=== PATIENT | female | born 1975 | race Caucasian/White ===

== ENCOUNTER 2019-12-26 16:26 | Outpatient (REF) | payer BC, MEDICAID, SELFPAY | END 2019-12-26 16:27 | disposition home or self-care (01) | LOC: HO.LAB 16:26 | PROVIDERS: PCP Internal Medicine; Visit Provider Internal Medicine | DX: Z20.828 Contact with and (suspected) exposure to other viral communicable diseases (principal) | CPT/HCPCS: 36415; 87635 ==

== ENCOUNTER 2020-02-10 06:14 | Outpatient (REF) | payer BC, MEDICAID, SELFPAY | END 2020-02-10 06:15 | disposition home or self-care (01) | LOC: HO.LAB 06:14 | PROVIDERS: Visit Provider Internal Medicine | DX: Z20.828 Contact with and (suspected) exposure to other viral communicable diseases (principal) | CPT/HCPCS: C9803; U0003 ==

== ENCOUNTER 2020-02-18 08:21 | Outpatient (REF) | payer BC, MEDICAID, SELFPAY ==
--- NOTE | 2020-02-18 08:25 | MM_ITS ---
EXAMINATION: MM SCREENING DIGITAL BREAST TOMOSYNTHESIS, BILATERAL CLINICAL INFORMATION: Screening. Asymptomatic. Remote prior history breast reduction mammoplasty approximately 20 years ago. The lifetime risk of breast cancer based on the Tyrer-Cuzick Model is 7%. COMPARISON: Mammography: 08/18/2017, 02/13/2017, 07/27/2016 TECHNIQUE: Digital breast tomosynthesis is performed in both the craniocaudal and mediolateral oblique views along with computer-aided detection (CAD). Synthesized 2D images are generated from the tomosynthesis. FINDINGS: There are scattered areas of fibroglandular density (ACR BI-RADS breast composition Category b). Parenchymal pattern is similar to prior studies. There is minor scarring consistent with the prior history reduction mammoplasty. There is no significant mass or interval architectural abnormality or abnormal calcifications. No significant changes. MM/MM tomosynthesis screening BI IMPRESSION: No significant changes from prior studies. ASSESSMENT: BI-RADS 2: Benign RECOMMENDATION: Routine annual mammography screening. This patient's information was entered into a reminder system with a target due date for their next mammogram.
== END 2020-02-18 08:22 | disposition home or self-care (01) ==
LOC: HO.MAMMO 08:21
PROVIDERS: PCP Internal Medicine; Visit Provider Internal Medicine
DX: Z12.31 Encounter for screening mammogram for malignant neoplasm of breast (principal)
CPT/HCPCS: 77063; 77067

== ENCOUNTER 2020-03-30 12:55 | Outpatient (REF) | payer BC, MEDICAID, SELFPAY | END 2020-03-30 12:56 | disposition home or self-care (01) | LOC: HO.LAB 12:55 | PROVIDERS: PCP Internal Medicine; Visit Provider Internal Medicine | DX: Z20.822 Contact with and (suspected) exposure to COVID-19 (principal) | CPT/HCPCS: 36415; C9803; U0003 ==

== ENCOUNTER 2020-05-18 07:52 | Outpatient (REF) | payer BC, MEDICAID, SELFPAY | END 2020-05-18 07:53 | disposition home or self-care (01) | LOC: HO.LAB 07:52 | PROVIDERS: Visit Provider Internal Medicine | DX: Z20.822 Contact with and (suspected) exposure to COVID-19 (principal) | CPT/HCPCS: 36415; C9803; U0003; U0005 ==

== ENCOUNTER → 2020-07-23 13:48 | Outpatient (BNVA) | payer BC, MEDICAID, SELFPAY | PROVIDERS: PCP Internal Medicine; Visit Provider Anesthesiology ==

== ENCOUNTER 2020-07-27 12:00 | Outpatient (REF) | payer BC, MEDICAID, SELFPAY ==
--- NOTE | ~2020-07-27 | XR_ITS ---
EXAMINATION: CERVICAL AND LUMBAR SPINE X-RAYS CLINICAL INFORMATION: Spondylosis without myelopathy or radiculopathy COMPARISON: Previous lumbar spine April 2017 and previous cervical spine June 2015 TECHNIQUE: 5 views of the cervical spine and 5 views of the lumbar spine FINDINGS: Cervical spine: Bone alignment is normal. No fracture or dislocation is seen. There is degenerative spondylosis at C4-C5 and C5-C6. Evaluation of the right neuroforamen is limited due to patient positioning. There is a suggestion of right C4-C5 and C5-C6 mild neuroforaminal narrowing from bony osteophyte. Left-sided neural foramen appear patent. There is no prevertebral soft tissue swelling. Lumbar spine: There is a transitional vertebral body segment or or sacralization of L5. No fracture or dislocation is seen. Disc spaces are normal. There are degenerative changes at the transitional segment sacral articulation. XR/XR lumbar spine 4V min IMPRESSION: Cervical spine: Degenerative changes. Lumbar spine: Probable transitional vertebral body segment or sacralization of L5. Degenerative changes of the transitional segment sacral articulation, particularly in the left.
--- NOTE | ~2020-07-27 | XR_ITS ---
EXAMINATION: CERVICAL AND LUMBAR SPINE X-RAYS CLINICAL INFORMATION: Spondylosis without myelopathy or radiculopathy COMPARISON: Previous lumbar spine April 2017 and previous cervical spine June 2015 TECHNIQUE: 5 views of the cervical spine and 5 views of the lumbar spine FINDINGS: Cervical spine: Bone alignment is normal. No fracture or dislocation is seen. There is degenerative spondylosis at C4-C5 and C5-C6. Evaluation of the right neuroforamen is limited due to patient positioning. There is a suggestion of right C4-C5 and C5-C6 mild neuroforaminal narrowing from bony osteophyte. Left-sided neural foramen appear patent. There is no prevertebral soft tissue swelling. Lumbar spine: There is a transitional vertebral body segment or or sacralization of L5. No fracture or dislocation is seen. Disc spaces are normal. There are degenerative changes at the transitional segment sacral articulation. XR/XR cervical spine min 6V IMPRESSION: Cervical spine: Degenerative changes. Lumbar spine: Probable transitional vertebral body segment or sacralization of L5. Degenerative changes of the transitional segment sacral articulation, particularly in the left.
== END 2020-07-27 12:01 | disposition home or self-care (01) ==
LOC: HO.XRAY 12:00
PROVIDERS: PCP Internal Medicine; Visit Provider Anesthesiology
DX: M47.816 Spondylosis without myelopathy or radiculopathy, lumbar region (principal); M47.812 Spondylosis without myelopathy or radiculopathy, cervical region
CPT/HCPCS: 72052; 72110

== ENCOUNTER 2020-08-21 08:27 | Outpatient (REF) | payer BC, MEDICAID, SELFPAY ==
[2020-08-21 11:06] LABS: MANUAL DIFF FLAG NO
[2020-08-21 11:09] LABS: Basophils Absolute Auto 0.1 X10*3/uL (0.0-0.2); Eosinophils Absolute Auto 0.9 X10*3/uL (0.0-0.4); Eosinophils Percent Auto 7.1 % (0-4); Hematocrit 42.3 % (37-47); Hemoglobin 13.9 g/dl (12.0-16.0); Imm Gran Abs Auto 0.09 X10*3/uL (0.00-0.03); Imm Gran Pct Auto 0.7 % (0.0-0.4); Lymphocytes Absolute Auto 3.5 X10*3/uL (1.2-4.9); Lymphocytes Percent Auto 28.6 % (20-40); Mean Corpuscular HGB Conc 32.9 g/dl (31.0-35.0); Mean Corpuscular Hemoglobin 28.6 pg (27.0-33.0); Monocytes Absolute Auto 0.7 X10*3/uL (0.1-1.2); Monocytes Percent Auto 5.8 % (2-11); Neutrophils Percent Auto 56.8 % (45-73); Platelet Count 336 X10*3/uL (160-400); Red Blood Count 4.86 X10*6/uL (4.20-5.50); Red Cell Distribution Width 13.1 % (11.0-16.0); White Blood Count 12.3 X10*3/uL (4.8-10.8)
[2020-08-21 12:05] LABS: Alanine Aminotransferase 12 U/L (0-31); Alkaline Phosphatase 64 U/L (39-117); Anion Gap 14 (12-20); Aspartate Amino Transferase 10 U/L (5-31); Bilirubin Total 0.4 mg/dL (0.0-1.0); Blood Urea Nitrogen 13 mg/dL (9-16); Calcium 8.9 mg/dL (8.4-10.2); Carbon Dioxide 22 mmol/L (22-29); Chloride 108 mmol/L (96-108); Cholesterol 210 mg/dL; Estimated Glomerular Filt Rate > 60; Glucose Random 81 mg/dL (60-115); HDL Cholesterol 45 mg/dL; LDL Cholesterol Calculated 116 mg/dl; Potassium 4.6 mmol/L (3.3-5.1); Sodium 139 mmol/L (135-145); Total Protein 6.8 g/dL (6.5-8.0); Triglycerides 245 mg/dL
[2020-08-21 12:51] LABS: Thyroid Stimulating Hormone 2.35 uIU/mL (0.32-4.0); Vitamin D 25-OH Total 17.2 ng/mL (>30)
== END 2020-08-21 08:28 | disposition home or self-care (01) ==
LOC: HO.MANLDS 08:27
PROVIDERS: Visit Provider Internal Medicine
DX: Z00.00 Encounter for general adult medical examination without abnormal findings (principal)
CPT/HCPCS: 36415; 80053; 80061; 82306; 84443; 85025

== ENCOUNTER → 2020-09-03 15:31 | Outpatient (BNVA) | payer BC, MEDICAID, SELFPAY | PROVIDERS: PCP Internal Medicine; Visit Provider Anesthesiology ==

== ENCOUNTER 2020-09-25 07:26 | Outpatient (REF) | payer BC, MEDICAID, SELFPAY ==
--- NOTE | ~2020-09-25 | MR_ITS ---
EXAMINATION: MR CERVICAL SPINE WITHOUT CONTRAST CLINICAL INFORMATION: Neck pain radiating down arms. Radiculopathy. Self-reported left arm pain and tingling. COMPARISON: Cervical spine radiograph 07/27/2020. TECHNIQUE: MRI of the cervical spine was obtained using routine sequences without contrast. FINDINGS: VERTEBRAL BODIES AND PARASPINAL SOFT TISSUES: Vertebral body height, alignment and marrow signal are within normal limits aside from minimal endplate discogenic marrow signal changes. Mild anterior endplate osteophytosis is present at C4-C5 and C5-C6. CERVICOMEDULLARY JUNCTION AND VISUALIZED POSTERIOR FOSSA: Normal. SPINAL LEVELS: C2-C3: Normal. No central foraminal stenoses. Normal intervertebral disc. C3-C4: Normal. C4-C5: Mild anterior endplate osteophytosis. No central or foraminal stenoses. C5-C6: Mild anterior endplate osteophytosis. No central or foraminal stenoses. C6-C7: Normal. C7-T1: Normal. The cervical spinal cord is normal in contour, caliber and signal intensity. MR/MR cervical spine wo con IMPRESSION: Minimal anterior endplate osteophytosis of the cervical spine; otherwise, normal unenhanced MRI of the cervical spine. No central or foraminal stenoses. No nerve root impingement identified.
== END 2020-09-25 07:27 | disposition home or self-care (01) ==
LOC: HO.MRI 07:26
PROVIDERS: Visit Provider Physician Assistant
DX: M54.12 Radiculopathy, cervical region (principal)
CPT/HCPCS: 72141

== ENCOUNTER 2021-05-25 15:34 | Emergency (ER) | payer BC, MEDICAID, SELFPAY ==
--- NOTE | ~2021-05-25 | XR_ITS ---
EXAMINATION: XR CHEST CLINICAL INFORMATION: Chest pain COMPARISON: 10/02/2019 TECHNIQUE: 2 views of the chest were obtained. FINDINGS: No significant abnormality is noted involving the heart, lungs, mediastinum, bony thorax or soft tissues. XR/XR chest 2V IMPRESSION: Unremarkable examination.
--- NOTE | 2021-05-25 15:41 | ECG_ITS ---
Test Reason : chest pain Blood Pressure : / mmHG Vent. Rate : 062 BPM Atrial Rate : 062 BPM P-R Int : 132 ms QRS Dur : 088 ms QT Int : 404 ms P-R-T Axes : 096 071 033 degrees QTc Int : 410 ms Normal sinus rhythm Normal ECG When compared with ECG of 18-APR-2018 07:13, No significant change was found Referred By: Generic ED Physician Electronically Signed By:Zoran Davila
[2021-05-25 17:10] VITALS: BP 126/45; PULSE 63; RESP 18; TEMP 36.4; O2SAT 100; BMI 34.3
[2021-05-25 17:22] LABS: MANUAL DIFF FLAG NO
[2021-05-25 17:28] LABS: Basophils Absolute Auto 0.1 X10*3/uL (0.0-0.2); Basophils Percent Auto 1.1 % (0-2); Eosinophils Absolute Auto 0.2 X10*3/uL (0.0-0.4); Eosinophils Percent Auto 1.8 % (0-4); Hematocrit 41.3 % (37.0-47.0); Hemoglobin 14.1 g/dl (12.0-16.0); Imm Gran Abs Auto 0.06 X10*3/uL (0.00-0.03); Imm Gran Pct Auto 0.7 % (0.0-0.4); Mean Corpuscular HGB Conc 34.1 g/dl (31.0-35.0); Mean Corpuscular Hemoglobin 28.9 pg (27.0-33.0); Mean Corpuscular Volume 84.6 fL (80.0-98.0); Mean Platelet Volume 9.9 fL (9.4-12.3); Monocytes Absolute Auto 1.3 X10*3/uL (0.1-1.2); Monocytes Percent Auto 15.8 % (2-11); Neutrophils Absolute Auto 4.6 x10*3/uL (2.0-8.3); Neutrophils Percent Auto 56.6 % (45-73); Platelet Count 294 X10*3/uL (160-400); Red Blood Count 4.88 X10*6/uL (4.20-5.50); Red Cell Distribution Width 12.7 % (11.0-16.0); White Blood Count 8.1 X10*3/uL (4.8-10.8)
[2021-05-25 17:41] LABS: Alanine Aminotransferase 12 U/L (0-31); Albumin Level 4.3 g/dL (3.5-5.0); Alkaline Phosphatase 65 U/L (39-117); Anion Gap 15 (12-20); Aspartate Amino Transferase 16 U/L (5-31); Bilirubin Total 0.6 mg/dL (0.0-1.0); Blood Urea Nitrogen 11 mg/dL (9-16); Calcium 9.3 mg/dL (8.4-10.2); Carbon Dioxide 23 mmol/L (22-29); Chloride 104 mmol/L (96-108); Creatinine Clr Calc Pharmacy 74.9; Estimated Glomerular Filt Rate > 60; Glucose Random 79 mg/dL (60-115); Potassium 3.7 mmol/L (3.3-5.1); Sodium 138 mmol/L (135-145); Total Protein 7.2 g/dL (6.5-8.0)
[2021-05-25 17:47] LABS: Troponin-I High Sensitivity < 3.5 ng/L (<3.5-17.0)
[2021-05-25 17:50] LABS: COVID-19 Test Negative (Negative)
--- NOTE | 2021-05-25 21:14 | ED.CHESTPAIN ---
HPI - Chest Pain General Chief Complaint: Chest Pain Stated Complaint: chest pains/SOB Time Seen by Provider: 05/25/21 20:54 Source: patient Mode of arrival: ambulatory Limitations: no limitations History of Present Illness HPI narrative: 46-year-old female who presents emergency department for evaluation of chest pain, left shoulder pain and shortness of breath. The patient states that the chest pain started yesterday morning while she was resting. She states that it came on suddenly. She describes the pain as a sharp pain located on her left chest radiating to her left shoulder and down her left arm. She states the left shoulder and left arm pain is a burning sensation. She states the pain is been constant since its onset. The pain is 8/10 at its worst. The pain is associated with shortness of breath and dyspnea on exertion. She states she has also had a cough x2 days which is productive of phlegm with no blood. She has not noticed any pain or swelling in her legs. She denies being on control pills. She has not been on any long trips. She states she had similar pain 3 years prior in 2019 and had a cardiac workup with a negative stress test. The patient states that there is a family history of early heart disease. The patient's father had a heart attack at age 58 and of heart disease emphysema at age 59. The patient had a brother who at age 42 of a heart attack. Related Data Home Medications Medication Instructions Recorded Confirmed clonazepam 0.5 mg tablet 0.5 mg PO DAILY 07/23/20 diclofenac sodium 75 mg 75 mg PO BID 07/23/20 tablet,delayed release levothyroxine 25 mcg tablet 25 mcg PO DAILY 07/23/20 propranolol 20 mg tablet 20 mg PO TID 07/23/20 Previous Rx's Medication Instructions Recorded cyclobenzaprine 7.5 mg tablet 7.5 mg PO TID 30 Days #90 tab 07/23/20 Allergies Allergy/AdvReac Type Severity Reaction Status Date / Time Sulfa (Sulfonamide Allergy Intermediate RASH Verified 09/03/20 15:36 Antibiotics) [SULFA(SULFONAMIDE ANTIBIOTICS)] Review of Systems Review of Systems: Yes all other systems are reviewed and are negative PMFSH Past Medical History [facility] [place] Narrative: The past medical history: None. Past surgical history: x2, hip surgery, breast reduction. Social history: The patient states that she stop smoking cigarettes 2 days prior. She states she smokes 1/2 pack of cigarettes per day x2 years. She denies alcohol use. She denies drug use. 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 Social History Social History Advance Directives: No Advance Directives Information Provided: No Physical Exam Vital Signs: Vital Signs: Last Vital Signs Temp 98.5 F 05/25/21 21:20 Pulse 72 05/25/21 21:20 Resp 16 05/25/21 21:20 BP 116/53 L 05/25/21 21:20 Pulse Ox 98 05/25/21 21:20 BMI result Body Mass Index 34.3 Const: General: cooperative and no acute distress Orientation/consciousness: oriented to person and oriented to place Limitations: no limitations HENMT: Head: Yes normal to inspection, Yes normocephalic and Yes atraumatic Ears: external ears normal General nose exam: Normal external nose present Face and sinus: Yes normal facial exam Mouth: Normal oral and palatal mucosa present Throat: Yes posterior oropharynx normal Eyes: General: appearance normal, both eyes and all related structures Pupils: Equal, round and reactive pupils present Neck: Neck: Yes normal visual inspection, Yes no lymphadenopathy, Yes trachea midline and Yes supple Chest: Chest palpation & inspection: normal inspection of the chest and tenderness costochondral junction (Left) Resp: Effort & Inspection: normal respiratory effort and able to speak in complete sentences Auscultation: clear to auscultation bilaterally Cardio: Rate: regular rate Rhythm: regular rhythm Heart sounds: S1 normal heart sound present, S2 normal heart sound present and no murmurs GI: Inspection: Yes normal to inspection Palpation (GI): Soft to palpation, nontender and no guarding Auscultation: normal bowel sounds : General: Yes no CVA tenderness Back/Spine/Pelvis: Back: no CVA tenderness Skin: General skin exam: no rashes or lesions noted Neuro: General: oriented to person and oriented to place Cranial nerves: Yes CN's II-XII intact bilaterally and Yes Equal, round and reactive pupils present Cognition (Neuro): normal cognition Motor exam (neuro): 07/29 motor strength present throughout Extrem: General: Yes normal to inspection Psych: Appearance: grossly normal Speech and movement: Normal speech and movement present Affect: normal affect Attitude: cooperative Thought process: Normal thought process present Thought content: Normal thought content present Course Course Course Narrative: 46-year-old female who presents emergency department for evaluation of left-sided chest pain which radiates to her left shoulder and down her left arm, the pain started yesterday in the morning, came on suddenly and has been constant since then. Patient has had a productive cough x2 days. The chest pain is associated with shortness of breath and dyspnea on exertion. Patient's only cardiac risk factor is family history and a 2 year history of smoking. The patient's vital signs were normal with an O2 saturation of 100% on room air which is reassuring. Patient's examination did reveal significant left-sided chest wall tenderness along the costochondral joints. Twelve EKG was unremarkable unchanged compared to EKG from 04/18/2018. Chest x-ray was negative. Patient's CBC and CMP were normal. COVID-19 was negative. High sensitive troponin I was below detectable limits. Given these findings and the patient's chest wall tenderness, believe that the patient's symptoms are consistent with costochondritis I did discuss this with her. Patient was advised to take Tylenol ibuprofen. She was given printed and verbal instructions and discharged home. MDM - Chest Pain Lab Data Result diagrams: 05/25/21 17:17 05/25/21 17:17 Labs: Lab Results 05/25/21 05/25/21 05/25/21 Range/Units 17:15 17:17 17:17 WBC 8.1 (4.8-10.8) X10*3/uL RBC 4.88 (4.20-5.50) X10*6/uL Hgb 14.1 (12.0-16.0) g/dl Hct 41.3 (37.0-47.0) % MCV 84.6 (80.0-98.0) fL MCH 28.9 (27.0-33.0) pg MCHC 34.1 (31.0-35.0) g/dl RDW 12.7 (11.0-16.0) % Plt Count 294 (160-400) X10*3/uL MPV 9.9 (9.4-12.3) fL Immature Gran % (Auto) 0.7 H (0.0-0.4) % Neut % (Auto) 56.6 (45-73) % Lymph % (Auto) 24.0 (20-40) % Cal[place]oun % (Auto) 15.8 H (2-11) % Eos % (Auto) 1.8 (0-4) % Baso % (Auto) 1.1 (0-2) % Lymph # (Auto) 2.0 (1.2-4.9) X10*3/uL [place]oun # (Auto) 1.3 H (0.1-1.2) X10*3/uL Eos # (Auto) 0.2 (0.0-0.4) X10*3/uL Baso # (Auto) 0.1 (0.0-0.2) X10*3/uL Abs Immat Gran (auto) 0.06 H (0.00-0.03) X10*3/uL Absolute Neuts (auto) 4.6 (2.0-8.3) x10*3/uL Absolute Nucleated RBC 0.000 (0.0-0.012) X10*3/uL Nucleated RBC % (auto) 0.0 (0.0-0.2) /100WBC Sodium 138 (135-145) mmol/L Potassium 3.7 (3.3-5.1) mmol/L Chloride 104 (96-108) mmol/L Carbon Dioxide 23 (22-29) mmol/L Anion Gap 15 (12-20) BUN 11 (9-16) mg/dL Creatinine 0.85 (0.5-1.4) mg/dL Estim Creat Clear Calc 74.9 Estimated GFR > 60 Random Glucose 79 (60-115) mg/dL Calcium 9.3 (8.4-10.2) mg/dL Total Bilirubin 0.6 (0.0-1.0) mg/dL AST 16 D (5-31) U/L ALT 12 (0-31) U/L Alkaline Phosphatase 65 (39-117) U/L Troponin I High Sens (<3.5-17.0) ng/L Total Protein 7.2 (6.5-8.0) g/dL Albumin 4.3 (3.5-5.0) g/dL COVID-19 ([facility]) Negative (Negative) COVID-19 Clin Com See Note 05/25/21 Range/Units 17:17 WBC (4.8-10.8) X10*3/uL RBC (4.20-5.50) X10*6/uL Hgb (12.0-16.0) g/dl Hct (37.0-47.0) % MCV (80.0-98.0) fL MCH (27.0-33.0) pg MCHC (31.0-35.0) g/dl RDW (11.0-16.0) % Plt Count (160-400) X10*3/uL MPV (9.4-12.3) fL Immature Gran % (Auto) (0.0-0.4) % Neut % (Auto) (45-73) % Lymph % (Auto) (20-40) % Calhoun % (Auto) (2-11) % Eos % (Auto) (0-4) % Baso % (Auto) (0-2) % Lymph # (Auto) (1.2-4.9) X10*3/uL [place]oun # (Auto) (0.1-1.2) X10*3/uL Eos # (Auto) (0.0-0.4) X10*3/uL Baso # (Auto) (0.0-0.2) X10*3/uL Abs Immat Gran (auto) (0.00-0.03) X10*3/uL Absolute Neuts (auto) (2.0-8.3) x10*3/uL Absolute Nucleated RBC (0.0-0.012) X10*3/uL Nucleated RBC % (auto) (0.0-0.2) /100WBC Sodium (135-145) mmol/L Potassium (3.3-5.1) mmol/L Chloride (96-108) mmol/L Carbon Dioxide (22-29) mmol/L Anion Gap (12-20) BUN (9-16) mg/dL Creatinine (0.5-1.4) mg/dL Estim Creat Clear Calc Estimated GFR Random Glucose (60-115) mg/dL Calcium (8.4-10.2) mg/dL Total Bilirubin (0.0-1.0) mg/dL AST (5-31) U/L ALT (0-31) U/L Alkaline Phosphatase (39-117) U/L Troponin I High Sens < 3.5 (<3.5-17.0) ng/L Total Protein (6.5-8.0) g/dL Albumin (3.5-5.0) g/dL COVID-19 ([facility]AK) (Negative) COVID-19 Clin Com Discharge Plan Discharge Clinical Impression: Costalchondritis Patient Disposition: Home, Self-Care Instructions: Costochondritis (ED) Additional Instructions: Your complete blood count (CBC) and comprehensive metabolic panel (CMP) were normal which is reassuring. Your EKG was unremarkable and unchanged compared to your EKG done in March of 2018. Chest x-ray revealed no abnormalities to explain your chest pain. The high sensitivity troponin I, which is a marker of heart damage was below detectable limits and this is reassuring as well. At this time I do not think that your chest pain was caused by a heart attack or heart disease. On your examination, you did have tenderness with palpation of your left chest along the joints of your chest. This is consistent with inflammation of the chest joints (costochondritis) which is most likely the cause of your chest pain and left arm pain. Take Motrin (ibuprofen) 200 mg pills, 3 pills every 6 hours for the next 4 days to reduce inflammation chest then after that as needed for pain Take Tylenol (acetaminophen) 500 mg pills, 2 pills every 6 hours as needed for pain not relieved by the Motrin.. Apply ice for 15 minutes to the area that hurts on your chest, then apply a heating a pad on low for 15 minutes. Do this 4-6 times a day to help reduce the pain in your b chest Continue with normal activities as tolerated since staying in bed and not moving around will make your pain worse. Please return to the Emergency Department or see your doctor immediately if your symptoms get worse or if you develop any new symptoms that are concerning you. Follow up with your doctor in 2 day. Please read the other printed discharge instructions on costochondritis. Please see the work note. Prescriptions: No Action cyclobenzaprine 7.5 mg tablet 7.5 mg PO TID 30 Days Qty: 90 8RF Stand Alone Forms: Work/School Release Interventions: ED Discharge Assessment Last Done: 05/25/21 21:25 Discharge Date/Time: 05/25/21 21:35
[2021-05-25 21:20] VITALS: BP 116/53; PULSE 72; RESP 16; TEMP 36.9; O2SAT 98
== END 2021-05-25 21:35 | disposition home or self-care (01) ==
LOC: HO.ED 21:34
PROVIDERS: Emergency Provider Emergency Medicine Emergency Medical Services; PCP Internal Medicine
DX: R07.89 Other chest pain (principal); R06.02 Shortness of breath; Z20.822 Contact with and (suspected) exposure to COVID-19; Z79.899 Other long term (current) drug therapy
CPT/HCPCS: 71046; 80053; 84484; 85025; 87635; 93005; 99283

== ENCOUNTER 2022-06-08 20:41 | Emergency (ER) | payer BC, MEDICAID, SELFPAY ==
--- NOTE | ~2022-06-08 | US_ITS ---
EXAMINATION: US ABDOMEN LIMITED CLINICAL INFORMATION: Right upper quadrant pain. COMPARISON: No similar priors. TECHNIQUE: Real-time imaging of the right upper quadrant abdominal viscera. FINDINGS: PANCREAS: Normal. LIVER: Normal. The liver is normal in size. The liver contour is normal. Parenchymal echogenicity is normal. No focal hepatic lesion. There is no intrahepatic biliary duct dilatation seen. GALLBLADDER: There is a 0.3 cm hyperechoic focus in the gallbladder wall with no associated artifacts, such as twinkle, ring down or shadowing; unsure if this is a mobile or not mobile observation, as is not well seen on the decubitus images. No gallbladder wall thickening or pericholecystic free fluid. Negative Bergman's sign. COMMON BILE DUCT: Normal in caliber measuring 0.3 cm in diameter. RIGHT KIDNEY: Normal. No hydronephrosis. No renal calculi or focal parenchymal lesions. The kidney measures 10 cm in maximum dimension. FREE FLUID: None. US/US abdomen limited IMPRESSION: 1. There is a 0.3 cm hyperechoic focus in the gallbladder wall that could represent a gallbladder wall polyp versus an adherent stone. Given its small size, no follow-up is recommended. 2. No sonographic evidence of acute cholecystitis.
[2022-06-08 21:02] VITALS: BP 127/30; PULSE 64; RESP 18; TEMP 36.7; O2SAT 98; BMI 32.3
[2022-06-08 21:17] LABS: MANUAL DIFF FLAG NO
[2022-06-08 21:19] LABS: Basophils Percent Auto 0.4 % (0-2); Eosinophils Absolute Auto 0.5 X10*3/uL (0.0-0.4); Eosinophils Percent Auto 5.5 % (0-4); Hematocrit 42.9 % (37.0-47.0); Hemoglobin 14.5 g/dl (12.0-16.0); Imm Gran Abs Auto 0.07 X10*3/uL (0.00-0.03); Imm Gran Pct Auto 0.8 % (0.0-0.4); Lymphocytes Absolute Auto 2.9 X10*3/uL (1.2-4.9); Lymphocytes Percent Auto 31.5 % (20-40); Mean Corpuscular HGB Conc 33.8 g/dl (31.0-35.0); Mean Corpuscular Hemoglobin 28.7 pg (27.0-33.0); Mean Corpuscular Volume 84.8 fL (80.0-98.0); Mean Platelet Volume 9.8 fL (9.4-12.3); Monocytes Absolute Auto 0.9 X10*3/uL (0.1-1.2); Monocytes Percent Auto 9.3 % (2-11); Neutrophils Absolute Auto 4.8 x10*3/uL (2.0-8.3); Neutrophils Percent Auto 52.5 % (45-73); Platelet Count 283 X10*3/uL (160-400); Red Blood Count 5.06 X10*6/uL (4.20-5.50); Red Cell Distribution Width 12.5 % (11.0-16.0); White Blood Count 9.2 X10*3/uL (4.8-10.8)
[2022-06-08 21:34] LABS: Alanine Aminotransferase 14 U/L (0-31); Albumin Level 3.9 g/dL (3.5-5.0); Alkaline Phosphatase 62 U/L (39-117); Anion Gap 11 (12-20); Aspartate Amino Transferase 16 U/L (5-31); Bilirubin Direct < 0.2 mg/dL (0.0-0.5); Bilirubin Total 0.4 mg/dL (0.0-1.0); Blood Urea Nitrogen 10 mg/dL (9-16); Calcium 8.4 mg/dL (8.4-10.2); Carbon Dioxide 25 mmol/L (22-29); Chloride 107 mmol/L (96-108); Estimated Glomerular Filt Rate > 60; Glucose Random 88 mg/dL (60-115); Lipase 33 U/L (8-78); Potassium 3.7 mmol/L (3.3-5.1); Sodium 139 mmol/L (135-145); Total Protein 6.6 g/dL (6.5-8.0)
[2022-06-08 21:56] LABS: B Type Natriuretic Peptide < 10 pg/mL (<100)
--- NOTE | 2022-06-08 22:14 | ED_ITS ---
HPI - Abdominal Pain General Chief Complaint: Abdominal Pain Stated Complaint: abd pain Time Seen by Provider: 06/08/22 21:55 Source: patient Mode of arrival: ambulatory Limitations: no limitations History of Present Illness HPI narrative: Is complaining of upper abdominal pain since yesterday had temperature 100.7 degrees patient with nausea no vomiting or diarrhea never had similar pain in the past no urinary complaints no diarrhea Related Data Home Medications Medication Instructions Recorded Confirmed clonazepam 0.5 mg tablet 0.5 mg PO DAILY 07/23/20 diclofenac sodium 75 mg 75 mg PO BID 07/23/20 tablet,delayed release levothyroxine 25 mcg tablet 25 mcg PO DAILY 07/23/20 propranolol 20 mg tablet 20 mg PO TID 07/23/20 Previous Rx's Medication Instructions Recorded cyclobenzaprine 7.5 mg tablet 7.5 mg PO TID 30 days #90 tabs 07/23/20 dicyclomine 20 mg tablet 20 mg PO TID PRN abdominal pain 06/09/22 #15 tabs ondansetron 4 mg disintegrating 4 mg PO Q6-8H PRN nausea and 06/09/22 tablet vomiting #7 tabs Allergies Allergy/AdvReac Type Severity Reaction Status Date / Time Sulfa (Sulfonamide Allergy Intermediate RASH Verified 06/08/22 21:02 Antibiotics) [SULFA(SULFONAMIDE ANTIBIOTICS)] Review of Systems Review of Systems Yes all other systems are reviewed and are negative [facility] Past Medical History 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 Oriented X3. No acute distress. Eyes: No pallor or icterus ENT: Pharynx normal. Oral Mucosa moist Neck: Normal inspection. Neck supple. CVS: Normal heart rate and rhythm. Pulses normal. Respiratory: No respiratory distress. Equal air entry bilateral, Abdomen: Soft mild epigastric tenderness no rebound tenderness Bergman sign negative. Bowel sounds are present, no mass palpable, no CVA tenderness Skin: Skin warm and dry. Normal skin color. Normal skin turgor. Extremities: No lower extremity edema. No calf tenderness Neuro: Oriented X 3. Medical Decision Making Medical Decision Making [facility] Narrative: . Nonspecific abdominal pain likely viral ultrasound negative for gallstones Bergman sign is negative UA is negative discharge patient home symptomatic t reatment with Bentyl and Zofran Lab Data [facility] Lab Attestation statement: I reviewed the patient's lab results. 06/08/22 21:13 06/08/22 21:13 Labs: Lab Results 06/08/22 06/08/22 06/08/22 Range/Units 21:13 21:13 21:13 WBC 9.2 (4.8-10.8) X10*3/uL RBC 5.06 (4.20-5.50) X10*6/uL Hgb 14.5 (12.0-16.0) g/dl Hct 42.9 (37.0-47.0) % MCV 84.8 (80.0-98.0) fL MCH 28.7 (27.0-33.0) pg MCHC 33.8 (31.0-35.0) g/dl RDW 12.5 (11.0-16.0) % Plt Count 283 (160-400) X10*3/uL MPV 9.8 (9.4-12.3) fL Immature Gran % (Auto) 0.8 H (0.0-0.4) % Neut % (Auto) 52.5 (45-73) % Lymph % (Auto) 31.5 (20-40) % Gregory % (Auto) 9.3 (2-11) % Eos % (Auto) 5.5 H (0-4) % Baso % (Auto) 0.4 (0-2) % Lymph # (Auto) 2.9 (1.2-4.9) X10*3/uL Gregory # (Auto) 0.9 (0.1-1.2) X10*3/uL Eos # (Auto) 0.5 H (0.0-0.4) X10*3/uL Baso # (Auto) 0.0 (0.0-0.2) X10*3/uL Abs Immat Gran (auto) 0.07 H (0.00-0.03) X10*3/uL Absolute Neuts (auto) 4.8 (2.0-8.3) x10*3/uL Absolute Nucleated RBC 0.000 (0.0-0.012) X10*3/uL Nucleated RBC % (auto) 0.0 (0.0-0.2) /100WBC Sodium 139 (135-145) mmol/L Potassium 3.7 (3.3-5.1) mmol/L Chloride 107 (96-108) mmol/L Carbon Dioxide 25 (22-29) mmol/L Anion Gap 11 L (12-20) BUN 10 (9-16) mg/dL Creatinine 0.87 (0.5-1.4) mg/dL Estim Creat Clear Calc 70.0 Estimated GFR > 60 Random Glucose 88 (60-115) mg/dL Calcium 8.4 D (8.4-10.2) mg/dL Total Bilirubin 0.4 (0.0-1.0) mg/dL Direct Bilirubin < 0.2 (0.0-0.5) mg/dL AST 16 (5-31) U/L ALT 14 (0-31) U/L Alkaline Phosphatase 62 (39-117) U/L B-Natriuretic Peptide < 10 (<100) pg/mL Total Protein 6.6 (6.5-8.0) g/dL Albumin 3.9 (3.5-5.0) g/dL Lipase 33 (8-78) U/L Urine Color Urine Appearance Urine pH (5.0-9.0) Ur Specific [place] (1.005-1.025) Urine Protein (Neg-Trace) mg/dL Urine Glucose (UA) (Negative) mg/dL Urine Ketones (Negative) mg/dL Urine Blood (Negative) Urine Nitrite (Negative) Ur Leukocyte Esterase (Negative) 06/08/22 Range/Units 23:42 WBC (4.8-10.8) X10*3/uL RBC (4.20-5.50) X10*6/uL Hgb (12.0-16.0) g/dl Hct (37.0-47.0) % MCV (80.0-98.0) fL MCH (27.0-33.0) pg MCHC (31.0-35.0) g/dl RDW (11.0-16.0) % Plt Count (160-400) X10*3/uL MPV (9.4-12.3) fL Immature Gran % (Auto) (0.0-0.4) % Neut % (Auto) (45-73) % Lymph % (Auto) (20-40) % Gregory % (Auto) (2-11) % Eos % (Auto) (0-4) % Baso % (Auto) (0-2) % Lymph # (Auto) (1.2-4.9) X10*3/uL Gregory # (Auto) (0.1-1.2) X10*3/uL Eos # (Auto) (0.0-0.4) X10*3/uL Baso # (Auto) (0.0-0.2) X10*3/uL Abs Immat Gran (auto) (0.00-0.03) X10*3/uL Absolute Neuts (auto) (2.0-8.3) x10*3/uL Absolute Nucleated RBC (0.0-0.012) X10*3/uL Nucleated RBC % (auto) (0.0-0.2) /100WBC Sodium (135-145) mmol/L Potassium (3.3-5.1) mmol/L Chloride (96-108) mmol/L Carbon Dioxide (22-29) mmol/L Anion Gap (12-20) BUN (9-16) mg/dL Creatinine (0.5-1.4) mg/dL Estim Creat Clear Calc Estimated GFR Random Glucose (60-115) mg/dL Calcium (8.4-10.2) mg/dL Total Bilirubin (0.0-1.0) mg/dL Direct Bilirubin (0.0-0.5) mg/dL AST (5-31) U/L ALT (0-31) U/L Alkaline Phosphatase (39-117) U/L B-Natriuretic Peptide (<100) pg/mL Total Protein (6.5-8.0) g/dL Albumin (3.5-5.0) g/dL Lipase (8-78) U/L Urine Color Yellow Urine Appearance Clear Urine pH 5.5 (5.0-9.0) Ur Specific [place] 1.010 (1.005-1.025) Urine Protein Negative (Neg-Trace) mg/dL Urine Glucose (UA) Negative (Negative) mg/dL Urine Ketones Trace (Negative) mg/dL Urine Blood Negative (Negative) Urine Nitrite Negative (Negative) Ur Leukocyte Esterase Negative (Negative) Medications Administered Discontinued Medications Generic Name Dose Route Start Last Admin Trade Name Freq PRN Reason Stop Dose Admin Ondansetron HCl 4 mg 06/08/22 23:58 06/09/22 00:03 Ondansetron Odt 4 Mg Tab.Rapdis TRANSLINGU 06/08/22 23:59 4 mg ONCE ONE Administration Tramadol HCl 50 mg 06/08/22 23:58 06/09/22 00:03 Tramadol Hcl 50 Mg Tablet PO 06/08/22 23:59 50 mg ONCE ONE Administration Discharge Plan Discharge Clinical Impression: Abdominal pain Patient Disposition: Home, Self-Care Instructions: Abdominal Pain (ED) Additional Instructions: Drink plenty of fluids Medicine for pain and nausea as prescribed Likely have a viral syndrome Report to ER if pain gets worse Prescriptions: New dicyclomine 20 mg tablet 20 mg PO TID PRN (Reason: abdominal pain) Qty: 15 0RF ondansetron 4 mg tablet,disintegrating 4 mg PO Q6-8H PRN (Reason: nausea and vomiting) Qty: 7 0RF No Action cyclobenzaprine 7.5 mg tablet 7.5 mg PO TID 30 Days Qty: 90 8RF Interventions: ED Discharge Assessment Last Done: 06/09/22 00:13 Discharge Date/Time: 06/09/22 00:08
[2022-06-08 23:50] LABS: Appearance Urine Clear; Color Urine Yellow; Glucose Urine UA Negative (Negative); Leukocyte Esterase Urine Negative (Negative); Nitrite Urine Negative (Negative); PH 5.5 (5.0-9.0); Urine Blood Negative (Negative); Urine Ketones Trace mg/dL (Negative); Urine Protein Negative (Neg-Trace)
[2022-06-09] MEDS: traMADoL HCL 50 MG TABLET PO (00:03)
[2022-06-09] MEDS: Ondansetron ODT 4 MG TAB.RAPDIS TRANSLINGU (00:03)
--- NOTE | 2022-06-09 00:08 | PC.NURSE ---
pt aox4, no apparent distress, c/o abd pain minor daughter at bedside resting quietly while using phone will ctm
--- NOTE | 2022-06-09 00:14 | PC.NURSE ---
Discharge instructions given/explained to pt No apparent distress Ambulates safely/independently aox4
== END 2022-06-09 00:08 | disposition home or self-care (01) ==
PROVIDERS: Emergency Provider Internal Medicine; PCP Internal Medicine
DX: R10.13 Epigastric pain (principal); R11.2 Nausea with vomiting, unspecified; R06.02 Shortness of breath; Z79.899 Other long term (current) drug therapy
CPT/HCPCS: 36415; 76705; 80048; 80076; 81003; 83690; 83880; 85025; 99284

== ENCOUNTER 2022-06-13 14:03 | Emergency (ER) | payer BC, MEDICAID, SELFPAY ==
--- NOTE | ~2022-06-13 | CT_ITS ---
EXAMINATION: CT ABDOMEN AND PELVIS WITH CONTRAST CLINICAL INFORMATION: Right upper quadrant pain. Epigastric pain. COMPARISON: Ultrasound abdomen 06/08/2022 TECHNIQUE: Multidetector volumetric images were obtained from the superior aspect of the liver through the pubic symphysis following administration 85 mL of Omnipaque 350 intravenous contrast. Sagittal and coronal reformatted images were obtained on the technologist's workstation. Oral contrast: No This CT examination was performed using dose optimization techniques as appropriate, variously including the following: *Automated exposure control *Adjustment of mA and/or kV according to patient size (this includes techniques or standardized protocols for targeted exams where dose is matched to indication/reason for exam; i.e. extremities or head) *Use of iterative reconstruction technique DLP: 660 mGy-cm FINDINGS: LUNG BASES: The visualized lung bases are unremarkable. LIVER, GALLBLADDER, AND BILIARY TREE: The liver is normal in size, shape, and attenuation. 2 small hypodense lesions, too small to characterize, statistically likely to be cysts. No biliary ductal dilatation is present. The gallbladder is unremarkable with no evidence of radiopaque gallstones, gallbladder wall thickening, or obvious pericholecystic inflammatory changes. Ultrasound demonstrated a polyp versus adherent stone, which is not evident on CT. PANCREAS: Unremarkable. SPLEEN: Unremarkable. ADRENAL GLANDS: Unremarkable. KIDNEYS AND URETERS: The kidneys are normal in size, shape, and attenuation. No hydronephrosis, hydroureter, or calculi seen. No perinephric stranding. BLADDER: Unremarkable. GASTROINTESTINAL TRACT: Stomach has luminal contents limiting evaluation. No dilated small bowel loops. Small-moderate volume stool in the large colon. No acute inflammatory changes evident with the large bowel. Normal appendix. No free fluid. No free air. ABDOMINAL WALL: No significant hernia is appreciated. LYMPH NODES: No lymphadenopathy seen.. VASCULAR: Normal caliber aorta. Portal vein is enhancing. PELVIC VISCERA: Anteverted uterus. There is fullness of the lower uterine segment/cervix, with the relative hyperattenuation as compared to the more distal aspect of the uterus. This of indeterminate etiology. Evaluation is limited on CT. No suspicious adnexal findings. OSSEOUS STRUCTURES: No acute or suspicious osseous abnormality.. CT/CT abdomen pelvis w IV con IMPRESSION: 1. 2 small hypodense liver lesions, too small to compress, statistically probably cysts. 2. Nonobstructive bowel gas pattern. No acute bowel findings seen. 3. Findings in the lower uterine segment/cervix, with fullness and relative hypoattenuation, suboptimally evaluated by CT. Clinically correlate. Consider further evaluation with follow-up ultrasound as clinically warranted. 4. The stone/polyp in the gallbladder seen on the recent ultrasound is not evident on CT. No acute pericholecystic inflammatory changes evident by CT. Fleischner guidelines were followed.
[2022-06-13 14:09] VITALS: BP 112/45; PULSE 82; RESP 18; TEMP 36.6; O2SAT 98; BMI 33.3
--- NOTE | 2022-06-13 14:10 | ED.ABDPAIN ---
HPI - Abdominal Pain General Chief Complaint: Abdominal Pain <YOLANDA Royal - Last Filed: 06/13/22 14:12> Stated Complaint: abd pains <YOLANDA Royal - Last Filed: 06/13/22 14:12> Time Seen by Provider: 06/13/22 18:28 <YOLANDA Royal - Last Filed: 06/13/22 14:12> Source: patient <Gale Sepulveda NP - Last Filed: 06/13/22 20:55> Mode of arrival: ambulatory <Gale Sepulveda NP - Last Filed: 06/13/22 20:55> Limitations: no limitations <Gale Sepulveda NP - Last Filed: 06/13/22 20:55> History of Present Illness HPI narrative: 47-year-old female presents with over 1 week of right upper quadrant bandlike abdominal pain accompanied by dizziness, and nausea. Patient states that she here 1 week ago with a negative workup. Abdominal pain is worsened, and alleviate nausea and dizziness <Gale Sepulveda NP - Last Filed: 06/13/22 20:55> MD elicited complaint: abdominal pain <Gale Sepulveda NP - Last Filed: 06/13/22 20:55> Onset (ago): week(s) <Gale Sepulveda NP - Last Filed: 06/13/22 20:55> Pain Consistency: constant <Gale Sepulveda NP - Last Filed: 06/13/22 20:55> Location: epigastric and RUQ <Gale Sepulveda NP - Last Filed: 06/13/22 20:55> Severity: severe <Gale Sepulveda NP - Last Filed: 06/13/22 20:55> Pain scale (0-10): 8 <Gale Sepulveda NP - Last Filed: 06/13/22 20:55> Quality: aching <Gale Sepulveda NP - Last Filed: 06/13/22 20:55> Radiation: LUQ and epigastric <Gale Sepulveda NP - Last Filed: 06/13/22 20:55> Exacerbating factors: eating, vomiting and movement <Gale Sepulveda NP - Last Filed: 06/13/22 20:55> Relieving factors: nothing <Gale Sepulveda NP - Last Filed: 06/13/22 20:55> Associated symptoms: nausea, vomiting and other (Dizziness, fatigue) <Gale Sepulveda NP - Last Filed: 06/13/22 20:55> Treatments prior to arrival: prescription analgesics and other (Antiemetics) <GEN Adamson Last Filed: 06/13/22 20:55> Related Data Hx Last Menstrual Period: Tubal ligation <Gale Sepulveda NP - Last Filed: 06/13/22 20:55> Home Medications: Home Medications Medication Instructions Recorded Confirmed clonazepam 0.5 mg tablet 0.5 mg PO DAILY 07/23/20 diclofenac sodium 75 mg 75 mg PO BID 07/23/20 tablet,delayed release levothyroxine 25 mcg tablet 25 mcg PO DAILY 07/23/20 propranolol 20 mg tablet 20 mg PO TID 07/23/20 Previous Rx's Medication Instructions Recorded cyclobenzaprine 7.5 mg tablet 7.5 mg PO TID 30 days #90 tabs 07/23/20 dicyclomine 20 mg tablet 20 mg PO TID PRN abdominal pain 06/09/22 #15 tabs ondansetron 4 mg disintegrating 4 mg PO Q6-8H PRN nausea and 06/09/22 tablet vomiting #7 tabs <YOLANDA Royal - Last Filed: 06/13/22 14:12> Allergies/Adverse Reactions: Allergies Allergy/AdvReac Type Severity Reaction Status Date / Time Sulfa (Sulfonamide Allergy Intermediate RASH Verified 06/08/22 21:02 Antibiotics) [SULFA(SULFONAMIDE ANTIBIOTICS)] <YOLANDA Royal - Last Filed: 06/13/22 14:12> Review of Systems Review of Systems Constitutional: No Fever, No Chills Cardiovascular: No Chest Pain, No SOB Respiratory: No Cough, No Dyspnea Gastrointestinal: Of Nausea, phos Vomiting, No Diarrhea, pot abdominal Pain Genitourinary: No Dysuria, No Hematuria Musculoskeletal: No joint pain, No Myalgias, No Joint Swelling Skin: No Skin lacerations, No rash Neuro: No Weakness, No Numbness, No Paresthesias, positive Dizziness, No Headache <GEN Adamson Last Filed: 06/13/22 20:55> Yes all other systems are reviewed and are negative <Gale Sepulveda NP - Last Filed: 06/13/22 20:55> [facility] Past Medical History Attestation statement: The following information was validated with the patient. 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 <YOLANDA Royal - Last Filed: 06/13/22 14:12> Hx Last Menstrual Period: Tubal ligation <Gale Sepulveda NP - Last Filed: 06/13/22 20:55> Social History Social History: Social History Alcohol intake: never Advance Directives: No Advance Directives Information Provided: Yes <YOLANDA Royal - Last Filed: 06/13/22 14:12> Physical Exam ED Vital Signs: Vital Signs - 24 hr 06/13/22 14:09 06/13/22 18:40 06/13/22 20:12 Temperature 98 F 97.8 F Pulse Rate 82 67 70 Respiratory Rate 18 14 15 Blood Pressure 112/45 L 110/53 L 115/69 Pulse Oximetry 98 98 99 Oxygen Delivery Method Room Air Room Air BMI result Body Mass Index 33.3 <YOLANDA Royal - Last Filed: 06/13/22 14:12> Vital Signs - 24 hr 06/13/22 14:09 06/13/22 18:40 06/13/22 20:12 Temperature 98 F 97.8 F Pulse Rate 82 67 70 Respiratory Rate 18 14 15 Blood Pressure 112/45 L 110/53 L 115/69 Pulse Oximetry 98 98 99 Oxygen Delivery Method Room Air Room Air BMI result Body Mass Index 33.3 <Gale Sepulveda NP - Last Filed: 06/13/22 20:55> Appearance: Alert. Oriented X3. Model distress. Eyes: Pupils equal, round and reactive to light. Sclera nonicteric. ENT: Pharynx normal. Dry mucous membranes. Neck: Normal inspection. Neck supple. CVS: Normal heart rate and rhythm. Pulses normal. Respiratory: No respiratory distress. Breath sounds normal. Abdomen: Soft and tender positive Bergman's, positive epigastric pain. Negative rigidity negative rebound. Skin: Skin warm and dry. Normal skin color. Extremities: Gait well-balanced well coordinated. Neuro: No motor deficit. No sensory deficit. Cranial nerves 2-12 intact. <Gale Sepulveda NP - Last Filed: 06/13/22 20:55> Course Course Course Narrative: This is an RME: Additional HPI, ROS, PE not included below will be deferred to primary provider. 47-year-old female without significant medical history presents complaints of epigastric and right upper quadrant pain x6 days was seen here 06/08/2022 for a similar complaint had an ultrasound which was negative was told she had a viral bug. Patient reports she has been nauseous is having difficult time tolerating p.o.. Denies fevers, chills, chest pain, shortness of breath, headache, vision changes, changes in urination or bowel habits. Physical exam mild tenderness to epigastric region and right upper quadrant. Plan labs, CT abd and pelvis. At this time I will not repeat another ultrasound as she had a negative ultrasound done on 06/09/2019 <YOLANDA Royal - Last Filed: 06/13/22 14:12> This is an RME: Additional HPI, ROS, PE not included below will be deferred to primary provider. 47-year-old female without significant medical history presents complaints of epigastric and right upper quadrant pain x6 days was seen here 06/08/2022 for a similar complaint had an ultrasound which was negative was told she had a viral bug. Patient reports she has been nauseous is having difficult time tolerating p.o.. Denies fevers, chills, chest pain, shortness of breath, headache, vision changes, changes in urination or bowel habits. Physical exam mild tenderness to epigastric region and right upper quadrant. Plan labs, CT abd and pelvis. At this time I will not repeat another ultrasound as she had a negative ultrasound done on 06/09/2019 20:30 CT scan negative for acute findings. Incidental findings noted which were discussed in detail with the patient, requiring follow-up with OBGYN. Patient does have a family history of cervical cancer and she has a history of HPV. She does understand the importance of follow-up for this abnormal uterine finding. She has an appointment with fast food assistant restaurant manager later next month, she will call to update them that she had an abnormal CT scan in requires an outpatient pelvic ultrasound. I also included this in the discharge instructions. Second incidental findings are 2 hypodense lesions in the liver that are too small to characterize. I did inform her that she must follow up on these, and that these are relatively benign at this time. Supportive measures with Tylenol and Motrin discussed, patient will continue to use her Zofran as prescribed. Stated that the Bentyl does not work. At this time I do not feel further medications are required for this. This is most likely a viral gastroenteritis as I have ruled out acute abdominal findings. As far as this patient's dizziness, if her dizziness continues and is accompanied with nausea and vomiting, patient could consider further studies with CT scan of the head. At this time patient is neurovascularly intact, NIH stroke scale 0, José Luis coma Scale 15. No indication for CT scan of the head at this time. Patient verbalized understanding of discharge instructions. Verbalized understandings of signs and symptoms indicating need for emergent intervention. <GEN Adamson Last Filed: 06/13/22 20:55> Medical Decision Making Differential Diagnosis Differential Diagnoses: The differential diagnosis associated with the presentation includes <GEN Adamson Last Filed: 06/13/22 20:55> Cholecystitis, viral gastroenteritis, acute appendicitis, gastritis <GEN Adamson Last Filed: 06/13/22 20:55> Admission/Observation Consideration of admission/observation: Escalation of care including admission/observation considered <GEN Adamson Last Filed: 06/13/22 20:55> If findings are consistent with acute abdomen, will consider admission or surgical consult <GEN Adamson Last Filed: 06/13/22 20:55> Lab Data MDM Lab Attestation statement: I reviewed the patient's lab results. <GEN Adamson Last Filed: 06/13/22 20:55> Result Diagrams: 06/13/22 14:30 06/13/22 14:30 <YOLANDA Royal - Last Filed: 06/13/22 14:12> Labs: Lab Results 06/13/22 06/13/22 06/13/22 Range/Units 14:30 14:30 14:30 WBC 10.9 H (4.8-10.8) X10*3/uL RBC 4.66 (4.20-5.50) X10*6/uL Hgb 13.3 (12.0-16.0) g/dl Hct 39.5 (37.0-47.0) % MCV 84.8 (80.0-98.0) fL MCH 28.5 (27.0-33.0) pg MCHC 33.7 (31.0-35.0) g/dl RDW 12.2 (11.0-16.0) % Plt Count 314 (160-400) X10*3/uL MPV 9.9 (9.4-12.3) fL Immature Gran % (Auto) 0.6 H (0.0-0.4) % Neut % (Auto) 60.6 (45-73) % Lymph % (Auto) 28.8 (20-40) % [place] % (Auto) 5.6 (2-11) % Eos % (Auto) 3.7 (0-4) % Baso % (Auto) 0.7 (0-2) % Lymph # (Auto) 3.2 (1.2-4.9) X10*3/uL [place] # (Auto) 0.6 (0.1-1.2) X10*3/uL Eos # (Auto) 0.4 (0.0-0.4) X10*3/uL Baso # (Auto) 0.1 (0.0-0.2) X10*3/uL Abs Immat Gran (auto) 0.07 H (0.00-0.03) X10*3/uL Absolute Neuts (auto) 6.6 (2.0-8.3) x10*3/uL Absolute Nucleated RBC 0.000 (0.0-0.012) X10*3/uL Nucleated RBC % (auto) 0.0 (0.0-0.2) /100WBC Sodium 140 (135-145) mmol/L Potassium 4.1 (3.3-5.1) mmol/L Chloride 109 H (96-108) mmol/L Carbon Dioxide 26 (22-29) mmol/L Anion Gap 9 L (12-20) BUN 15 (9-16) mg/dL Creatinine 0.75 (0.5-1.4) mg/dL Estim Creat Clear Calc 82.6 Estimated GFR > 60 Random Glucose 89 (60-115) mg/dL Calcium 8.8 (8.4-10.2) mg/dL Magnesium 2.2 (1.6-2.6) mg/dL Total Bilirubin 0.4 (0.0-1.0) mg/dL AST 14 (5-31) U/L ALT 22 (0-31) U/L Alkaline Phosphatase 53 (39-117) U/L Total Protein 6.2 L (6.5-8.0) g/dL Albumin 3.8 (3.5-5.0) g/dL Lipase 35 (8-78) U/L COVID-19 ([facility]AK) (Negative) COVID-19 Clin Com Influenza Type A (ARNULFO) Negative (Negative) Influenza Type B (ARNULFO) Negative (Negative) Influenza A & B Note See Note 06/13/22 Range/Units 14:30 WBC (4.8-10.8) X10*3/uL RBC (4.20-5.50) X10*6/uL Hgb (12.0-16.0) g/dl Hct (37.0-47.0) % MCV (80.0-98.0) fL MCH (27.0-33.0) pg MCHC (31.0-35.0) g/dl RDW (11.0-16.0) % Plt Count (160-400) X10*3/uL MPV (9.4-12.3) fL Immature Gran % (Auto) (0.0-0.4) % Neut % (Auto) (45-73) % Lymph % (Auto) (20-40) % [place] % (Auto) (2-11) % Eos % (Auto) (0-4) % Baso % (Auto) (0-2) % Lymph # (Auto) (1.2-4.9) X10*3/uL [place] # (Auto) (0.1-1.2) X10*3/uL Eos # (Auto) (0.0-0.4) X10*3/uL Baso # (Auto) (0.0-0.2) X10*3/uL Abs Immat Gran (auto) (0.00-0.03) X10*3/uL Absolute Neuts (auto) (2.0-8.3) x10*3/uL Absolute Nucleated RBC (0.0-0.012) X10*3/uL Nucleated RBC % (auto) (0.0-0.2) /100WBC Sodium (135-145) mmol/L Potassium (3.3-5.1) mmol/L Chloride (96-108) mmol/L Carbon Dioxide (22-29) mmol/L Anion Gap (12-20) BUN (9-16) mg/dL Creatinine (0.5-1.4) mg/dL Estim Creat Clear Calc Estimated GFR Random Glucose (60-115) mg/dL Calcium (8.4-10.2) mg/dL Magnesium (1.6-2.6) mg/dL Total Bilirubin (0.0-1.0) mg/dL AST (5-31) U/L ALT (0-31) U/L Alkaline Phosphatase (39-117) U/L Total Protein (6.5-8.0) g/dL Albumin (3.5-5.0) g/dL Lipase (8-78) U/L COVID-19 ([facility]AK) Negative (Negative) COVID-19 Clin Com See Note Influenza Type A (ARNULFO) (Negative) Influenza Type B (ARNULFO) (Negative) Influenza A & B Note <YOLANDA Royal - Last Filed: 06/13/22 14:12> Lab Results 06/13/22 06/13/22 06/13/22 Range/Units 14:30 14:30 14:30 WBC 10.9 H (4.8-10.8) X10*3/uL RBC 4.66 (4.20-5.50) X10*6/uL Hgb 13.3 (12.0-16.0) g/dl Hct 39.5 (37.0-47.0) % MCV 84.8 (80.0-98.0) fL MCH 28.5 (27.0-33.0) pg MCHC 33.7 (31.0-35.0) g/dl RDW 12.2 (11.0-16.0) % Plt Count 314 (160-400) X10*3/uL MPV 9.9 (9.4-12.3) fL Immature Gran % (Auto) 0.6 H (0.0-0.4) % Neut % (Auto) 60.6 (45-73) % Lymph % (Auto) 28.8 (20-40) % [place] % (Auto) 5.6 (2-11) % Eos % (Auto) 3.7 (0-4) % Baso % (Auto) 0.7 (0-2) % Lymph # (Auto) 3.2 (1.2-4.9) X10*3/uL [place] # (Auto) 0.6 (0.1-1.2) X10*3/uL Eos # (Auto) 0.4 (0.0-0.4) X10*3/uL Baso # (Auto) 0.1 (0.0-0.2) X10*3/uL Abs Immat Gran (auto) 0.07 H (0.00-0.03) X10*3/uL Absolute Neuts (auto) 6.6 (2.0-8.3) x10*3/uL Absolute Nucleated RBC 0.000 (0.0-0.012) X10*3/uL Nucleated RBC % (auto) 0.0 (0.0-0.2) /100WBC Sodium 140 (135-145) mmol/L Potassium 4.1 (3.3-5.1) mmol/L Chloride 109 H (96-108) mmol/L Carbon Dioxide 26 (22-29) mmol/L Anion Gap 9 L (12-20) BUN 15 (9-16) mg/dL Creatinine 0.75 (0.5-1.4) mg/dL Estim Creat Clear Calc 82.6 Estimated GFR > 60 Random Glucose 89 (60-115) mg/dL Calcium 8.8 (8.4-10.2) mg/dL Magnesium 2.2 (1.6-2.6) mg/dL Total Bilirubin 0.4 (0.0-1.0) mg/dL AST 14 (5-31) U/L ALT 22 (0-31) U/L Alkaline Phosphatase 53 (39-117) U/L Total Protein 6.2 L (6.5-8.0) g/dL Albumin 3.8 (3.5-5.0) g/dL Lipase 35 (8-78) U/L COVID-19 ([facility]) (Negative) COVID-19 Clin Com Influenza Type A (ARNULFO) Negative (Negative) Influenza Type B (ARNULFO) Negative (Negative) Influenza A & B Note See Note 06/13/22 Range/Units 14:30 WBC (4.8-10.8) X10*3/uL RBC (4.20-5.50) X10*6/uL Hgb (12.0-16.0) g/dl Hct (37.0-47.0) % MCV (80.0-98.0) fL MCH (27.0-33.0) pg MCHC (31.0-35.0) g/dl RDW (11.0-16.0) % Plt Count (160-400) X10*3/uL MPV (9.4-12.3) fL Immature Gran % (Auto) (0.0-0.4) % Neut % (Auto) (45-73) % Lymph % (Auto) (20-40) % [place] % (Auto) (2-11) % Eos % (Auto) (0-4) % Baso % (Auto) (0-2) % Lymph # (Auto) (1.2-4.9) X10*3/uL [place] # (Auto) (0.1-1.2) X10*3/uL Eos # (Auto) (0.0-0.4) X10*3/uL Baso # (Auto) (0.0-0.2) X10*3/uL Abs Immat Gran (auto) (0.00-0.03) X10*3/uL Absolute Neuts (auto) (2.0-8.3) x10*3/uL Absolute Nucleated RBC (0.0-0.012) X10*3/uL Nucleated RBC % (auto) (0.0-0.2) /100WBC Sodium (135-145) mmol/L Potassium (3.3-5.1) mmol/L Chloride (96-108) mmol/L Carbon Dioxide (22-29) mmol/L Anion Gap (12-20) BUN (9-16) mg/dL Creatinine (0.5-1.4) mg/dL Estim Creat Clear Calc Estimated GFR Random Glucose (60-115) mg/dL Calcium (8.4-10.2) mg/dL Magnesium (1.6-2.6) mg/dL Total Bilirubin (0.0-1.0) mg/dL AST (5-31) U/L ALT (0-31) U/L Alkaline Phosphatase (39-117) U/L Total Protein (6.5-8.0) g/dL Albumin (3.5-5.0) g/dL Lipase (8-78) U/L COVID-19 ([facility]) Negative (Negative) COVID-19 Clin Com See Note Influenza Type A (ARNULFO) (Negative) Influenza Type B (ARNULFO) (Negative) Influenza A & B Note <Gale Sepulveda NP - Last Filed: 06/13/22 20:55> Independent Interpretation I performed an independent interpretation of an: CT Scan <Gale Sepulveda NP - Last Filed: 06/13/22 20:55> Radiology Impression Discussion of test interpretation with radiology: I have reviewed the radiologist's reading. <Gale Sepulveda NP - Last Filed: 06/13/22 20:55> Radiologist Impression: FINDINGS: LUNG BASES: The visualized lung bases are unremarkable.? LIVER, GALLBLADDER, AND BILIARY TREE: The liver is normal in size, shape, and attenuation. 2 small hypodense lesions, too small to characterize, statistically likely to be cysts. No biliary ductal dilatation is present. The gallbladder is unremarkable with no evidence of radiopaque gallstones, gallbladder wall thickening, or obvious pericholecystic inflammatory changes. Ultrasound demonstrated a polyp versus adherent stone, which is not evident on CT. PANCREAS: Unremarkable.? SPLEEN: Unremarkable.? ADRENAL GLANDS: Unremarkable.? KIDNEYS AND URETERS: The kidneys are normal in size, shape, and attenuation. No hydronephrosis, hydroureter, or calculi seen. No perinephric stranding. ? BLADDER: Unremarkable.? GASTROINTESTINAL TRACT: Stomach has luminal contents limiting evaluation. No dilated small bowel loops. Small-moderate volume stool in the large colon. No acute inflammatory changes evident with the large bowel. Normal appendix. No free fluid. No free air.? ABDOMINAL WALL: No significant hernia is appreciated.? LYMPH NODES: No lymphadenopathy seen.. VASCULAR: Normal caliber aorta. Portal vein is enhancing. PELVIC VISCERA: Anteverted uterus. There is fullness of the lower uterine segment/cervix, with the relative hyperattenuation as compared to the more distal aspect of the uterus. This of indeterminate etiology. Evaluation is limited on CT. No suspicious adnexal findings. OSSEOUS STRUCTURES: No acute or suspicious osseous abnormality..? CT/CT abdomen pelvis w IV con IMPRESSION: 1. 2 small hypodense liver lesions, too small to compress, statistically probably cysts. ? 2. Nonobstructive bowel gas pattern. No acute bowel findings seen. ? 3. Findings in the lower uterine segment/cervix, with fullness and relative hypoattenuation, suboptimally evaluated by CT. Clinically correlate. Consider further evaluation with follow-up ultrasound as clinically warranted. ? 4. The stone/polyp in the gallbladder seen on the recent ultrasound is not evident on CT. No acute pericholecystic inflammatory changes evident by CT. ? Fleischner guidelines were followed. <Gale Sepulveda NP - Last Filed: 06/13/22 20:55> External Record Review External record reviewed: Outpatient record, Prior outpatient labs and Prior outpatient radiology <Gale Sepulveda NP - Last Filed: 06/13/22 20:55> Prescription Management I considered prescription management with: Other (Antiemetic) <Gale Sepulveda NP - Last Filed: 06/13/22 20:55> Medications Administered Discontinued Medications Generic Name Dose Route Start Last Admin Trade Name Freq PRN Reason Stop Dose Admin Acetaminophen 650 mg 06/13/22 19:08 06/13/22 19:42 Acetaminophen 325 Mg Tablet PO 06/13/22 19:09 650 mg ONCE ONE Administration Sodium Chloride 1,000 mls @ 999 mls/hr 06/13/22 18:45 06/13/22 19:54 Ns IVCONT 06/13/22 19:45 Infused .Q1H1M ANASTASIYA Infusion Iohexol 100 ml 06/13/22 18:45 06/13/22 18:45 Iohexol 350 Mg/Ml 100 Ml Infus..Btl IV 06/13/22 18:46 85 ml ONCE ONE Administration Morphine Sulfate 2 mg 06/13/22 18:32 06/13/22 19:07 Morphine Sulfate 2 Mg/Ml Cartridge IVPUSH 06/13/22 18:33 Not Given ONCE ONE Protocol Ondansetron HCl 4 mg 06/13/22 18:32 06/13/22 18:53 Ondansetron Hcl 4 Mg/2 Ml Vial IVPUSH 06/13/22 18:33 4 mg ONCE ONE Administration <YOLANDA Royal - Last Filed: 06/13/22 14:12> Medications Administered Discontinued Medications Generic Name Dose Route Start Last Admin Trade Name Freq PRN Reason Stop Dose Admin Acetaminophen 650 mg 06/13/22 19:08 06/13/22 19:42 Acetaminophen 325 Mg Tablet PO 06/13/22 19:09 650 mg ONCE ONE Administration Sodium Chloride 1,000 mls @ 999 mls/hr 06/13/22 18:45 06/13/22 19:54 Ns IVCONT 06/13/22 19:45 Infused .Q1H1M ANASTASIYA Infusion Iohexol 100 ml 06/13/22 18:45 06/13/22 18:45 Iohexol 350 Mg/Ml 100 Ml Infus..Btl IV 06/13/22 18:46 85 ml ONCE ONE Administration Morphine Sulfate 2 mg 06/13/22 18:32 06/13/22 19:07 Morphine Sulfate 2 Mg/Ml Cartridge IVPUSH 06/13/22 18:33 Not Given ONCE ONE Protocol Ondansetron HCl 4 mg 06/13/22 18:32 06/13/22 18:53 Ondansetron Hcl 4 Mg/2 Ml Vial IVPUSH 06/13/22 18:33 4 mg ONCE ONE Administration <Gale Sepulveda NP - Last Filed: 06/13/22 20:55> Discharge Plan Discharge Clinical Impression: Abdominal pain, Dizziness, Nausea <YOLANDA Royal - Last Filed: 06/13/22 14:12> Patient Disposition: Home, Self-Care <YOLANDA Royal - Last Filed: 06/13/22 14:12> Instructions: Acute Nausea and Vomiting (ED), Abdominal Pain (ED), Dizziness (ED) <YOLANDA Royal Last Filed: 06/13/22 14:12> Additional Instructions: Were evaluated for abdominal pain, nausea, and dizziness. Unfortunately we were unable to find a diagnosis for your symptoms. CT scan of abdomen pelvis is negative for acute findings requiring emergent intervention. Incidental findings on your CT scan indicate 2 small hypodense lesions consistent with cysts on the liver. Also find an anteverted uterus with the fullness of the lower uterine segment and cervix. You must follow-up with your primary care physician for continued follow-up of the hypodense liver lesions which are most likely benign cysts, and you must follow-up with a OBGYN for pelvic ultrasound as an outpatient. Alternate Tylenol 650 mg every 6 hours and Motrin 600 mg every 6 hours as needed for pain and fever management. Consider taking these medications 3 hours apart so you have pain and fever management every 3 hours. Write down what time you take these medications to prevent accidental overdose. Motrin is the same medication as Advil and ibuprofen. Tylenol is the same medication as acetaminophen. If you are unable to tolerate food, take Motrin with milk. Thank you for choosing this emergency department for evaluation. Please follow-up with primary care physician as needed. Return to the emergency department for any new, concerning, or worsening symptoms. <YOLANDA Royal Last Filed: 06/13/22 14:12> Prescriptions: No Action dicyclomine 20 mg tablet 20 mg PO TID PRN (Reason: abdominal pain) Qty: 15 0RF ondansetron 4 mg tablet,disintegrating 4 mg PO Q6-8H PRN (Reason: nausea and vomiting) Qty: 7 0RF cyclobenzaprine 7.5 mg tablet 7.5 mg PO TID 30 Days Qty: 90 8RF <YOLANDA Royal Last Filed: 06/13/22 14:12> Referrals: Harsh Zapien MD [Physician] - 2 weeks (For abnormal uterine CT scan) <YOLANDA Royal Last Filed: 06/13/22 14:12> Stand Alone Forms: Work/School Release <YOLANDA Royal Last Filed: 06/13/22 14:12>
[2022-06-13 14:38] LABS: MANUAL DIFF FLAG NO
[2022-06-13 14:39] LABS: Basophils Absolute Auto 0.1 X10*3/uL (0.0-0.2); Basophils Percent Auto 0.7 % (0-2); Eosinophils Absolute Auto 0.4 X10*3/uL (0.0-0.4); Eosinophils Percent Auto 3.7 % (0-4); Hematocrit 39.5 % (37.0-47.0); Hemoglobin 13.3 g/dl (12.0-16.0); Imm Gran Abs Auto 0.07 X10*3/uL (0.00-0.03); Imm Gran Pct Auto 0.6 % (0.0-0.4); Lymphocytes Absolute Auto 3.2 X10*3/uL (1.2-4.9); Lymphocytes Percent Auto 28.8 % (20-40); Mean Corpuscular HGB Conc 33.7 g/dl (31.0-35.0); Mean Corpuscular Hemoglobin 28.5 pg (27.0-33.0); Mean Corpuscular Volume 84.8 fL (80.0-98.0); Mean Platelet Volume 9.9 fL (9.4-12.3); Monocytes Absolute Auto 0.6 X10*3/uL (0.1-1.2); Monocytes Percent Auto 5.6 % (2-11); Neutrophils Absolute Auto 6.6 x10*3/uL (2.0-8.3); Neutrophils Percent Auto 60.6 % (45-73); Platelet Count 314 X10*3/uL (160-400); Red Blood Count 4.66 X10*6/uL (4.20-5.50); Red Cell Distribution Width 12.2 % (11.0-16.0); White Blood Count 10.9 X10*3/uL (4.8-10.8)
[2022-06-13 14:56] LABS: COVID-19 Test Negative (Negative); IDNOW Serial# 9DB6401D; IDNOW Serial# BCCEAD1C; Influenza A Negative (Negative); Influenza B2 Negative (Negative)
[2022-06-13 15:03] LABS: Alanine Aminotransferase 22 U/L (0-31); Albumin Level 3.8 g/dL (3.5-5.0); Alkaline Phosphatase 53 U/L (39-117); Anion Gap 9 (12-20); Aspartate Amino Transferase 14 U/L (5-31); Bilirubin Total 0.4 mg/dL (0.0-1.0); Blood Urea Nitrogen 15 mg/dL (9-16); Calcium 8.8 mg/dL (8.4-10.2); Carbon Dioxide 26 mmol/L (22-29); Chloride 109 mmol/L (96-108); Creatinine Clr Calc Pharmacy 82.6; Estimated Glomerular Filt Rate > 60; Glucose Random 89 mg/dL (60-115); Lipase 35 U/L (8-78); Magnesium 2.2 mg/dL (1.6-2.6); Potassium 4.1 mmol/L (3.3-5.1); Sodium 140 mmol/L (135-145); Total Protein 6.2 g/dL (6.5-8.0)
[2022-06-13 18:40] VITALS: BP 110/53; PULSE 67; RESP 14; TEMP 36.6; O2SAT 98
[2022-06-13] MEDS: iohexoL 350 MG/ML 100 ML INFUS..BTL IV (18:45)
[2022-06-13] MEDS: ondansetron HCL 4 MG/2 ML VIAL IVPUSH (18:53)
[2022-06-13] MEDS: 0.9 % Sodium Chloride 1,000 ML 999 ML IVCONT (18:53)
[2022-06-13] MEDS: Acetaminophen 325 MG TABLET 650 MG PO (19:42)
--- NOTE | 2022-06-13 20:10 | PC.NURSE ---
late entry: pt refused morphine, requesting something less strong. Verbal order from GEN Beasley for Tylenol 650 mg. Pt provided with tylenol and warm blanket. VSS, no new orders at this time
[2022-06-13 20:12] VITALS: BP 115/69; PULSE 70; RESP 15; O2SAT 99
== END 2022-06-13 20:54 | disposition home or self-care (01) ==
PROVIDERS: Physician Assistant; Emergency Provider Emergency Medicine; PCP Internal Medicine
DX: R10.11 Right upper quadrant pain (principal); R42 Dizziness and giddiness; R11.0 Nausea; Z20.822 Contact with and (suspected) exposure to COVID-19
CPT/HCPCS: 74177; 80053; 83690; 83735; 85025; 87502; 87635; 96361; 96374; 99284; J2405; Q9967

== ENCOUNTER 2022-06-23 13:12 | Outpatient (REF) | payer BC, MEDICAID, SELFPAY ==
--- NOTE | ~2022-06-23 | MM_ITS ---
EXAMINATION: MM SCREENING DIGITAL BREAST TOMOSYNTHESIS, BILATERAL CLINICAL INFORMATION: Screening. Asymptomatic. The lifetime risk of breast cancer based on the Tyrer-Cuzick Model is 6.8%. COMPARISON: Mammography: 02/18/2020 and studies dating back to 09/10/2013. TECHNIQUE: Digital breast tomosynthesis is performed in both the craniocaudal and mediolateral oblique views along with computer-aided detection (CAD). Synthesized 2D images are generated from the tomosynthesis. FINDINGS: There are scattered areas of fibroglandular density (ACR BI-RADS breast composition Category b). There is a stable parenchymal pattern of the left breast with no new abnormal dominant mass or suspicious grouping of microcalcifications. Within the upper outer aspect of the right breast there is a question asymmetric density for which spot compression view in mediolateral oblique and 90 degree mediolateral views are recommended. MM/MM tomosynthesis screening BI IMPRESSION: Right breast density for further evaluation. ASSESSMENT: BI-RADS 0: Incomplete - Need Additional Imaging Evaluation RECOMMENDATION: 1. Additional views of the right breast. 2. Targeted ultrasound if warranted after review of the additional views. 3. Radiology department staff will contact the patient for additional imaging. This patient's information was entered into a reminder system with a target due date for their next mammogram.
== END 2022-06-23 13:13 | disposition home or self-care (01) ==
LOC: HO.MAMMO 13:12
PROVIDERS: Visit Provider Physician Assistant
DX: Z12.31 Encounter for screening mammogram for malignant neoplasm of breast (principal)
CPT/HCPCS: 77063; 77067

== ENCOUNTER 2022-06-27 09:26 | Outpatient (REF) | payer BC, MEDICAID, SELFPAY | END 2022-06-27 09:27 | disposition home or self-care (01) | LOC: HO.MANLDS 09:26 | PROVIDERS: Visit Provider Physician Assistant | DX: Z13.89 Encounter for screening for other disorder (principal) ==

== ENCOUNTER 2022-07-05 13:04 | Outpatient (REF) | payer BC, MEDICAID, SELFPAY ==
[2022-07-05 18:15] LABS: CT PCR NOT DETECTED (Not Detect.); NG PCR NOT DETECTED (Not Detect.)
== END 2022-07-05 13:05 | disposition home or self-care (01) ==
LOC: HO.LNP 13:04
PROVIDERS: PCP Internal Medicine; Visit Provider Obstetrics & Gynecology
DX: R10.2 Pelvic and perineal pain (principal); R93.5 Abnormal findings on diagnostic imaging of other abdominal regions, including retroperitoneum
CPT/HCPCS: 0353U

== ENCOUNTER 2022-07-20 13:40 | Outpatient (REF) | payer BC, MEDICAID, SELFPAY ==
--- NOTE | ~2022-07-20 | US_ITS ---
EXAMINATION: US PELVIS CLINICAL INFORMATION: Abnormal finding on diagnostic imaging of other abdominal region COMPARISON: Previous CT of the abdomen and pelvis May 2022 and pelvic ultrasound February 2018 TECHNIQUE: Ultrasound of the pelvis is performed using both transabdominal and transvaginal transducers along with Doppler. Transvaginal imaging is performed due to inadequate visualization transabdominally. FINDINGS: The uterus is anteverted and measures 8 x 3.8 x 4.7 cm in dimension. No focal uterine lesion is seen. Endometrial thickness is normal measuring 0.5 cm. There are nabothian cysts in the cervix. The ovaries are normal. The right ovary measures 2.6 x 1.8 x 2.1 cm. Left ovary measures 3.1 x 1.4 x 2.5 cm. There is no fluid in the pelvis. US/US pelvic and transvaginal IMPRESSION: Unremarkable exam.
== END 2022-07-20 13:41 | disposition home or self-care (01) ==
LOC: HO.US 13:40
PROVIDERS: PCP Internal Medicine; Visit Provider Obstetrics & Gynecology
DX: R93.5 Abnormal findings on diagnostic imaging of other abdominal regions, including retroperitoneum (principal)
CPT/HCPCS: 76830; 76856

== ENCOUNTER 2022-07-28 13:25 | Outpatient (REF) | payer BC, MEDICAID, SELFPAY ==
--- NOTE | ~2022-07-28 | MM_ITS ---
EXAMINATION: MM DIAGNOSTIC DIGITAL BREAST TOMOSYNTHESIS, RIGHT US DIAGNOSTIC ULTRASOUND BREAST, RIGHT CLINICAL INFORMATION: Recall from screening for question of asymmetric density upper right breast on MLO view. Remote history bilateral breast reduction. COMPARISON: Mammography: Multiple prior exams dating back to 2013. TECHNIQUE: Digital breast tomosynthesis is performed. 2D images are generated from the tomosynthesis. The following views are obtained: Spot MLO, standard ML x2. Ultrasound right breast is targeted to outer right breast using grayscale imaging and color Doppler without and with harmonics. FINDINGS: There are scattered areas of fibroglandular density (ACR BI-RADS breast composition Category b). The additional views show scattered parenchymal densities similar to multiple prior exams. The asymmetry in the upper breast is a chronic finding and there is no increasing attenuation, developing density, or architectural abnormality. Ultrasound demonstrates no cystic or solid mass or architectural abnormality. No focal duct ectasia. Results are discussed with the patient at time of visit. MM/MM tomosynthesis added views R IMPRESSION: -No significant changes from prior studies. -Unremarkable right breast ultrasound. ASSESSMENT: BI-RADS 2: Benign RECOMMENDATION: Routine annual mammography screening. This patient's information was entered into a reminder system with a target due date for their next mammogram.
== END 2022-07-28 13:26 | disposition home or self-care (01) ==
LOC: HO.MAMMO 13:25
PROVIDERS: PCP Internal Medicine; Visit Provider Physician Assistant
DX: R92.8 Other abnormal and inconclusive findings on diagnostic imaging of breast (principal)
CPT/HCPCS: 76642; 77061; 77065

== ENCOUNTER 2022-08-04 10:06 | Outpatient (REF) | payer BC, MEDICAID, SELFPAY | END 2022-08-04 10:07 | disposition home or self-care (01) | LOC: HO.LNP 10:06 | PROVIDERS: PCP Internal Medicine; Visit Provider Advanced Practice Midwife | DX: Z13.89 Encounter for screening for other disorder (principal) ==

== ENCOUNTER 2022-08-04 10:47 | Outpatient (REF) | payer MEDICAID, SELFPAY ==
[2022-08-05 11:19] LABS: BV Int Neg Control Negative (Negative); BV Int Pos Control Positive (Positive)
== END 2022-08-04 10:48 | disposition home or self-care (01) ==
LOC: HO.LAB 10:47
PROVIDERS: Visit Provider Advanced Practice Midwife
DX: R10.2 Pelvic and perineal pain (principal)
CPT/HCPCS: 87480; 87510; 87660

== ENCOUNTER → 2022-08-09 11:32 | Outpatient (BNVA) | payer BC, MEDICAID, SELFPAY | PROVIDERS: PCP Internal Medicine; Visit Provider Obstetrics & Gynecology ==

== ENCOUNTER 2022-08-31 09:59 | Outpatient (REF) | payer MEDICAID, SELFPAY ==
--- NOTE | ~2022-08-31 | FL_ITS ---
EXAMINATION: XR FLUOROSCOPY UPPER GI WITH AIR CLINICAL INFORMATION: Right upper quadrant pain COMPARISON: None available. TECHNIQUE: Upper GI was performed using thin and thick barium and effervescent granules. FINDINGS: Esophageal motility is normal. No reflux or hernia is seen. The stomach and duodenum are normal. No fold thickening, mass, ulcer or stricture is seen. FLUOROSCOPY TIME: 0.2 minutes DOSE AREA PRODUCT: 2.3 hernandez per centimeter squared. TotalDose 7.4 mgy. 18 saved fluoroscopic images and 2 overhead images FL/FL upper GI w air IMPRESSION: Unremarkable examination.
== END 2022-08-31 10:00 | disposition home or self-care (01) ==
LOC: HO.XRAY 09:59
PROVIDERS: PCP Internal Medicine; Visit Provider Physician Assistant
DX: R10.11 Right upper quadrant pain (principal)
CPT/HCPCS: 74246

== ENCOUNTER 2024-01-04 09:54 | Outpatient (REF) | payer MEDICAID, SELFPAY ==
[2024-01-04 11:27] LABS: Free T4 (Free Thyroxine) 0.82 ng/dL (0.71-1.85); Thyroid Stimulating Hormone 2.15 uIU/mL (0.32-4.0)
[2024-01-06 00:58] LABS: Triiodothyronine T3 Free 2.5 pg/mL (2.3-4.2)
[2024-01-06 03:59] LABS: Thyroid Peroxidase Antibodies <1 IU/mL (<9)
[2024-01-10 14:09] LABS: Thyroid Stimulating Immunoglob <89 % baseline (<140)
== END 2024-01-04 09:55 | disposition home or self-care (01) ==
LOC: HO.10HDL 09:54
PROVIDERS: Visit Provider Physician Assistant
DX: E03.8 Other specified hypothyroidism (principal)
CPT/HCPCS: 36415; 84439; 84443; 84445; 84481; 86376

== ENCOUNTER 2024-01-25 10:43 | Outpatient (REF) | payer MEDICAID, SELFPAY ==
--- NOTE | ~2024-01-25 | XR_ITS ---
EXAMINATION: XR CERVICAL SPINE CLINICAL INFORMATION: RADICULOPATHY COMPARISON: 07/27/2020. TECHNIQUE: 3 views of the cervical spine were obtained. FINDINGS: Normal lordosis. No significant scoliosis. There is normal alignment without subluxation. Facets are normally aligned. Mild to moderate degenerative disc changes are present at C4-5, and C5-6 with preservation of the disc space although marginal osteophytic spurring is present. Atlantoaxial joint is aligned normally. No compression deformities or suspicious bony lesions. No soft tissue abnormalities identified. Imaged lung apices are clear. XR/XR cervical spine 3V IMPRESSION: No significant interval change. Mild degenerative spondylosis with no acute findings. Electronically signed by: Mahendra Carranza MD 02/16/2024 03:20 PM [facility]OL[facility]
--- NOTE | ~2024-01-25 | XR_ITS ---
EXAMINATION: XR HAND, RIGHT CLINICAL INFORMATION: BILATERAL CARPAL TUNNEL COMPARISON: None available. TECHNIQUE: PA, lateral, and oblique views of the right hand. FINDINGS: No fracture, dislocation, or focal bony abnormality. There is normal alignment. Joint spaces are preserved. There are no periarticular erosions. The carpus are intact and normally aligned. There is no soft tissue abnormality. XR/XR hand RT min 3V IMPRESSION: Normal right hand. Electronically signed by: Mahendra Carranza MD 02/16/2024 03:14 PM DEBRA
--- NOTE | ~2024-01-25 | XR_ITS ---
EXAMINATION: XR HAND, LEFT CLINICAL INFORMATION: BILATERAL CARPAL TUNNEL COMPARISON: No prior. TECHNIQUE: PA, lateral, and oblique views of the left hand. FINDINGS: No fracture, dislocation, or focal bony abnormality. There is normal alignment. Joint spaces are preserved. There are no periarticular erosions. The carpus are intact and normally aligned. There is no soft tissue abnormality. XR/XR hand LT min 3V IMPRESSION: Normal left hand. Electronically signed by: Mahendra Carranza MD 02/16/2024 03:13 PM DEBRA
== END 2024-01-25 10:44 | disposition home or self-care (01) ==
LOC: HO.XRAY 10:43
PROVIDERS: PCP Internal Medicine; Visit Provider Physician Assistant
DX: M54.12 Radiculopathy, cervical region (principal); G56.03 Carpal tunnel syndrome, bilateral upper limbs
CPT/HCPCS: 72040; 73130

== ENCOUNTER → 2024-01-25 10:49 | Outpatient (BNV) | payer MEDICAID, SELFPAY | PROVIDERS: PCP Internal Medicine; Visit Provider Radiology Diagnostic Radiology | DX: M54.12 Radiculopathy, cervical region (principal); G56.03 Carpal tunnel syndrome, bilateral upper limbs | CPT/HCPCS: 72040; 73130 ==

== ENCOUNTER 2024-04-05 12:02 | Outpatient (REF) | payer MEDICAID, SELFPAY | END 2024-04-05 12:03 | disposition home or self-care (01) | LOC: HO.MAMMO 12:02 | PROVIDERS: PCP Internal Medicine; Visit Provider Internal Medicine | DX: Z12.31 Encounter for screening mammogram for malignant neoplasm of breast (principal) | CPT/HCPCS: 77063; 77067 ==

== ENCOUNTER → 2024-04-05 12:15 | Outpatient (BNV) | payer MEDICAID, SELFPAY | PROVIDERS: PCP Internal Medicine; Visit Provider Internal Medicine | DX: Z12.31 Encounter for screening mammogram for malignant neoplasm of breast (principal) | CPT/HCPCS: 77063; 77067 ==

== ENCOUNTER 2025-02-07 10:55 | Outpatient (REF) | payer MEDICAID, SELFPAY ==
[2025-02-07 13:18] LABS: MANUAL DIFF FLAG NO
[2025-02-07 13:58] LABS: Hematocrit 40.7 % (37.0-47.0); Hemoglobin 13.3 g/dl (12.0-16.0); Imm Gran Abs Auto 0.08 X10*3/uL (0.00-0.03); Imm Gran Pct Auto 0.7 % (0.0-0.4); Lymphocytes Absolute Auto 3.4 X10*3/uL (1.2-4.9); Mean Corpuscular HGB Conc 32.7 g/dl (31.0-35.0); Mean Corpuscular Hemoglobin 27.7 pg (27.0-33.0); Mean Corpuscular Volume 84.6 fL (80.0-98.0); NRBC Abs Auto 0.000 X10*3/uL (0.0-0.012); NRBC Pct Auto 0.0 /100WBC (0.0-0.2); Platelet Count 328 X10*3/uL (160-400); Red Blood Count 4.81 X10*6/uL (4.20-5.50); White Blood Count 12.1 X10*3/uL (4.8-10.8)
[2025-02-07 14:35] LABS: Alanine Aminotransferase 13 U/L (0-31); Albumin Level 4.2 g/dL (3.5-5.0); Alkaline Phosphatase 74 U/L (39-117); Anion Gap 11 (12-20); Aspartate Amino Transferase 18 U/L (5-31); Blood Urea Nitrogen 13 mg/dL (9-16); Calcium 9.2 mg/dL (8.4-10.2); Carbon Dioxide 26 mmol/L (22-29); Chloride 105 mmol/L (96-108); Cholesterol 224 mg/dL (<200); Estimated Glomerular Filt Rate > 60; HDL Cholesterol 55 mg/dL (>40); Potassium 4.1 mmol/L (3.3-5.1); Sodium 138 mmol/L (135-145); Total Protein 7.3 g/dL (6.5-8.0); Triglycerides 153 mg/dL (<150)
[2025-02-12 17:28] LABS: Follicle Stimulating Hormone 2.9 mIU/mL
[2025-02-14 05:13] LABS: Estradiol Ultra Sensitive 142 pg/mL
== END 2025-02-07 10:56 | disposition home or self-care (01) ==
LOC: HO.MANLDS 10:55
PROVIDERS: Visit Provider Physician Assistant
DX: Z00.00 Encounter for general adult medical examination without abnormal findings (principal); Z13.1 Encounter for screening for diabetes mellitus; E03.8 Other specified hypothyroidism; N95.1 Menopausal and female climacteric states
CPT/HCPCS: 36415; 80053; 80061; 82670; 82672; 83001; 83002; 83036; 84144; 84146; 84403; 84443; 85025

== ENCOUNTER 2025-02-11 15:25 | Outpatient (REF) | payer MEDICAID, SELFPAY ==
--- NOTE | ~2025-02-11 | XR_ITS ---
EXAMINATION: XR CHEST CLINICAL INFORMATION: SOB COMPARISON: May 25, 2021. TECHNIQUE: PA and lateral views FINDINGS: No hyperinflation. No consolidation, pleural effusion or pneumothorax. Cardiomediastinal silhouette size is normal. Multilevel thoracolumbar spondylosis. Patient's large body habitus/obesity. S-shaped curvature of the thoracolumbar spine. XR/XR chest 2V IMPRESSION: No acute airspace disease. Spondylosis and scoliosis, mild to moderate. Electronically signed by: Bob Calderón MD 02/11/2025 03:46 PM EST
== END 2025-02-11 15:26 | disposition home or self-care (01) ==
LOC: HO.XRAY 15:25
PROVIDERS: PCP Internal Medicine; Visit Provider Physician Assistant
DX: R06.02 Shortness of breath (principal)
CPT/HCPCS: 71046

== ENCOUNTER → 2025-02-11 15:38 | Outpatient (BNV) | payer MEDICAID, SELFPAY | PROVIDERS: PCP Internal Medicine; Visit Provider Radiology Diagnostic Radiology | DX: R06.02 Shortness of breath (principal); M47.9 Spondylosis, unspecified | CPT/HCPCS: 71046 ==

== ENCOUNTER 2025-02-26 14:51 | Outpatient (REF) | payer MEDICAID, SELFPAY ==
[2025-02-26 15:06] LABS: MANUAL DIFF FLAG NO
[2025-02-26 15:47] LABS: Hematocrit 38.4 % (37.0-47.0); Hemoglobin 12.5 g/dl (12.0-16.0); Imm Gran Abs Auto 0.13 X10*3/uL (0.00-0.03); Imm Gran Pct Auto 1.0 % (0.0-0.4); Lymphocytes Absolute Auto 3.8 X10*3/uL (1.2-4.9); Mean Corpuscular HGB Conc 32.6 g/dl (31.0-35.0); Mean Corpuscular Hemoglobin 27.5 pg (27.0-33.0); Mean Corpuscular Volume 84.4 fL (80.0-98.0); NRBC Abs Auto 0.000 X10*3/uL (0.0-0.012); NRBC Pct Auto 0.0 /100WBC (0.0-0.2); Platelet Count 383 X10*3/uL (160-400); Red Blood Count 4.55 X10*6/uL (4.20-5.50); White Blood Count 13.1 X10*3/uL (4.8-10.8)
--- OUTSIDE RECORDS SUMMARY | 2025-02-26 17:45 | XMS_ITS | Encounter Summary ---
Author Organization [facility] Address [address] [place] [phone] Phone Care Team Providers Care Career Development Associate Name Role Phone Cresencio Box DO Primary Care Provider [phone] Reason for Referral * MRI/CAT Scan - Closed Specialty Diagnoses / Procedures Referred By Aldo lazaro Referred To Contact Radiology Diagnoses Other spondylosis with radiculopathy, cervical region Procedures MRI Cervical Spine Eden Ordo[facility]ez PA [address] [place] [address] Phone: tel: fax: [email or web address] Referral ID Status Reason Start Date Expiration Date Visits Re quested Visits Authorized [id number] Closed 10/07/2024 10/07/2025 1 1 Encounter Details Date Type Department Care Team (Latest Contact Info) Description 10/01/2024 Transcribe Orders Virtual Department [address] [place] [address] Eden Ordo[facility]ez PA [address] [place] [address] [email or web address] [facility] Other spondylosis with radiculopathy, cervical region (Primary Dx) Social History Tobacco Use Types Packs/Day Years Used Date Smoking Tobacco: Some Days Smokeless Tobacco: Never Education Answer Date Recorded Are you interested in more education? Not on neal e 07/23/2022 Are you concerned about learning? Not on file 07/23/2022 No 07/23/2022 No 07/23/2022 Digital Access Answer Date Recorded No 08/20/2022 No 08/20/2022 No 08/20/2022 Reliable internet access at home? Not on file 08/20/2022 Device with a working camera? Not on file Comments Unknown Sex and Gender Information Value Date Recorded Sex Assigned at Not on file Legal Sex Female 9:06 AM EDT Gender Identity Not on file Sexual Orientation Not on file documented as of this encounter Plan of Treatment Not on file documented as of this encounter Results * MRI CERVICAL SPINE (BONE) WITHOUT CONTRAST (10/15/2024 11:02 AM EDT) Anatomical Region Laterality Modality C-spine Magnetic Resonan ce 10/16/2024 6:24 PM EDT Impressions 10/16/2024 6:29 PM EDT Mild diffuse cervical degenerative disc disease, with small multilevel disc bulges, causing only minor effacement of the ventral CSF. No evidence of significant neural foraminal stenosis. Moderate posterior disc bulge/extrusion partially imaged at T2-T3, effacing the ventral CSF. Narrative 10/16/2024 6:29 PM EDT MRI CERVICAL SPINE (BONE) WITHOUT CONTRAST Referring clinician's provided indication for this examination in Epic: Outside Radiology Order; spondylosis CLINICAL HISTORY: Neck pain, arm pain. COMPARISONS: Cervical spine radiographs of 08/21/2020. TECHNIQUE: Multiplanar imaging was performed through the cervical spine, per routine protocol, without intravenous gadolinium. FINDINGS: The contents of the posterior fossa are unremarkable. No evidence of marrow edema. The cervical vertebra are preserved in height and AP alignment. Mild diffuse degenerative disc disease with small disc bulges at several levels throughout the cervical and upper thoracic spine. Minimal facet arthropathy. No significant incidental paraspinal soft tissue finding. Axial images performed to the following levels: C2-3: Disc desiccation with tiny posterior disc bulge. C3-4: Disc desiccation with small right lateral disc osteophyte complex. C4-5: Disc desiccation with tiny posterior disc bulge. C5-6: Disc desiccation with a small posterior disc bulge causing minor effacement of ventral CSF. C6-7: Disc desiccation with a small left asymmetric disc bulge. C7-1: Mild disc desiccation. T1-T2: Disc desiccation with a small posterior disc bulge/extrusion T2-3: Seen only on the sagittal images only partially imaged on this exam, there appears to be a moderate posterior disc bulge/extrusion seen at this level causing some effacement of the ventral CSF Procedure Note Julian Sanchez MD - 10/16/2024 MRI CERVICAL SPINE (BONE) WITHOUT CONTRAST Referring clinician's provided indication for this examination in Epic:Outside Radiology Order; spondylosis CLINICAL HISTORY: Neck pain, arm pain. COMPARISONS: Cervical spine radiographs of 08/21/2020. TECHNIQUE: Multiplanar imaging was performed through the cervical spine,per routine protocol, without intravenous gadolinium. FINDINGS: The contents of the posterior fossa are unremarkable. Noevidence of marrow edema. The cervical vertebra are preserved in heightand AP alignment. Mild diffuse degenerative disc disease with small discbulges at several levels throughout the cervical and upper thoracic spine.Minimal facet arthropathy. No significant incidental paraspinal softtissue finding. Axial images performed to the following levels: C2-3: Disc desiccation with tiny posterior disc bulge. C3-4: Disc desiccation with small right lateral disc osteophytecomplex. C4-5: Disc desiccation with tiny posterior disc bulge. C5-6: Disc desiccation with a small posterior disc bulge causing minoreffacement of ventral CSF. C6-7: Disc desiccation with a small left asymmetric disc bulge. C7-1: Mild disc desiccation. T1-T2: Disc desiccation with a small posterior disc bulge/extrusion T2-3: Seen only on the sagittal images only partially imaged on this exam,there appears to be a moderate posterior disc bulge/extrusion seen at thislevel causing some effacement of the ventral CSF IMPRESSION: Mild diffuse cervical degenerative disc disease, with small multileveldisc bulges, causing only minor effacement of the ventral CSF. No evidenceof significant neural foraminal stenosis. Moderate posterior disc bulge/extrusion partially imaged at T2-T3,effacing the ventral CSF. us Eden GUERRERO IMG MR XSPECIALTY Final Resul t documented in this encounter Visit Diagnoses Diagnosis Other spondylosis with radiculopathy, cervical region- Primary Other spondylosis with radiculopathy, cervical region documented in this encounter Care Teams Career Development Associate Relationship Specialty Start Date End Date VijayaCresencio de la vega DO Lexus [email or web address] PCP - General Internal Medicine 07/16/20 documented as of this encounter Additional Source Comments The information contained in this document represents components of the legal health record. It is not the complete legal health record.[facility]
--- OUTSIDE RECORDS SUMMARY | 2025-02-26 17:45 | XMS_ITS | Patient Health Record ---
Author Organization [facility] Address [address] [place] [id number] Care Team Providers Care Contracting Analyst Name Role Phone Cresencio Box Primary Care Provider Darryn Gonzalez Jr Unavailable Allergies Allergen (clinical drug ingredient) Drug/Non Drug Allergy documented on EMR Reaction Allergy Type Onset Date Status Substance with sulfonamide structure and antibacterial mechanism of action (substance) Sulfa (uncoded) Unknown Allergy Active Reason For Referral No Information Medications Medication SIG (Take, Route, Frequency, Duration) Notes Start Date End Date Status buPROPion HBr ER 348 MG Tablet Extended Release 24 Hour 1 tablet in the morning Orally Once a day; Duration: 30 day(s) Active Propranolol HCl 20 MG Tablet 1 tablet Or ally Once a day Active Levothyroxine Sodium 25 MCG Tablet 1 tablet in the morning on an empty stomach Orally Once a day; Duration: 30 day(s) Active MiraLax (colon prep) 8.3 ounce ((238) grams mixed with Gatorade or Crystal Light orally begin at 5:00 p.m. the day before the procedure; Duration: 1 day 03/13/2019 Active Nabumetone 500 MG Tablet 1 tablet Orally Once a day Active clonazePAM 0.5 MG Tablet 1 tablet at bed time Orally Once a day Active Immunizations Vaccine Route Administration Date Status Comme nts Influenza Unknown 02/25/2019 Administered Social History Tobacco Use: Social History Observation Description Date Details (start date - stop date) Never Smoker NA - NA Social History Drugs/Alcohol: Social Info Question Answer Notes Alcohol Screen Did you have a drink containing alcohol in the past year? No Points 0 Interpretation Negative Tobacco Use: Social Info Question Answer Notes Tobacco Use/Smoking Patient is a nonsmoker Additional Details Category Social Info Options Details Miscellaneous: Marital status: Occupation: hairdresser Problems Problem Type SNOMED Code ICD Code Onset Dates Problem Status W/U Status Risk Notes Problem Diarrhea (88659436) Diarrhea, unspecified type (R19.7) Active confirmed Plan Of Treatment Future Test Test Name Order Date COLONOSCOPY 03/13/2019 Insurance Providers Payer Name Payer Address Payer Phone Subscriber Number Group Number Insured Name Patient Relationship to Insured Coverage Start Date Coverage End Date [facility] [address] [place], [place] [id number] DOMINIK BLANCO Self - patient is the insured Medical (General) History Medical History History ICD Code hypothyroidism migraines back pain anxiety/depression Surgical History Surgery Date(Month/Year) section x2 breast reduction 1998 hip surgery 1979
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
--- OUTSIDE RECORDS SUMMARY | 2025-02-26 17:45 | XMS_ITS | Encounter Summary ---
Author Organization [facility] Address [address] [place] [address] Phone Care Team Providers Care Telesales Specialist Name Role Phone Cresencio Box DO Primary Care Provider [phone] Encounter Details Date Type Department Care Team (Late st Contact Info) Description 07/09/2020 Procedure Pass [facility], Ct Scan - [address] [address] Social History Tobacco Use Types Packs/Day Years Used Date Smoking Tobacco: Former Smokeless Tobacco: Never Comments Unknown Sex and Gender Information Value Date Recorded Sex Assigned at Not on file Legal Sex Female 9:06 AM EDT Gender Identity Not on file Sexual Orientation Not on file documented as of this encounter Plan of Treatment Not on file documented as of this encounter Visit Diagnoses Not on filedocumented in this encounter Additional Health Concerns Infection Onset Date Last Indicated Resolved Time CoV-Risk 01/19/2022 01/19/2022 01/30/2022 1:22 AM EDT documented as of this encounter Care Teams Telesales Specialist Relationship Specialty Start Date End Date Cresencio Box DO PCP - General Internal Medicine 07/16/20 documented as of this encounter Additional Source Comments The information contained in this document represents components of the legal health record. It is not the complete legal health record.[facility]
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
--- OUTSIDE RECORDS SUMMARY | 2025-02-26 17:45 | XMS_ITS | Encounter Summary ---
Author Organization [facility] Address [address] [place] [address] Phone Care Team Providers Care Manager Validation Name Role Phone Cresencio Box [employer] Primary Care Provider [phone] Reason for Referral * MRI/CAT Scan - Closed Specialty Diagnoses / Procedures Referred By Aldo carl Referred To Contact Radiology Diagnoses Solitary pulmonary nodule Procedures CT Chest CHG DIAGNOSTIC COMPUTED TOMOGRAPHY THORAX W/O CNTRST CHG DIAGNOSTIC COMPUTED TOMOGRAPHY THORAX W/CONTRAST CHG DIAGNOSTIC COMPUTED TOMOGRAPHY THORAX C-/C+ Samara Vazquez PA Phone: tel: fax: Referral ID Status Reason Start Date Expiration Date Visits Re quested Visits Authorized [id number] Closed 08/07/2020 09/05/2020 1 1 Encounter Details Date Type Department Care Team (Latest Contact Info) Description 07/09/2020 Transcribe Orders Virtual Department [address] [place] [address] Samara Vazquez PA [address] [place] [address] [place] [address] Solitary pulmonary nodule (Primary Dx); Cervical radiculopathy Social History Tobacco Use Types Packs/Day Years Used Date Smoking Tobacco: Never Assessed Comments Unknown Sex and Gender Information Value Date Recorded Sex Assigned at Not on file Legal Sex Female 9:06 AM EDT Gender Identity Not on file Sexual Orientation Not on file documented as of this encounter Plan of Treatment Not on file documented as of this encounter Results * CT CHEST WITH CONTRAST (08/21/2020 10:02 AM EDT) Anatomical Region Laterality Modality Chest Computed Tomogra phy 08/21/2020 10:3 1 AM EDT Impressions 08/21/2020 10:38 AM EDT No discrete pulmonary nodules or other significant pleural-parenchymal pathology demonstrated. TOTAL CTDIvol: mGy POS - [id number] Narrative 08/21/2020 10:38 AM EDT COMPARISON: None TECHNIQUE: CT chest with IV contrast. Multiplanar reformatted images generated. Automated exposure control utilized. FINDINGS: No worrisome pulmonary nodules identified. There appears be a small focus of scarring adjacent to the left cardiac border and left upper lobe (series 4 image 171). No focal infiltrate or pleural effusion. No jaime bronchiectasis. No endotracheal or mainstem endobronchial nodules apparent. No pathologically enlarged mediastinal or hilar lymph nodes or significant pericardial effusion are demonstrated. Main right and left pulmonary arteries are grossly patent. No supraclavicular mass or axillary lymphadenopathy apparent. There is mild degenerative spurring in the cervicothoracic spine without traumatic or destructive skeletal lesions noted. Adrenal glands are not enlarged. There is a small benign-appearing splenic calcification. There is a small cyst in the right hepatic lobe. Remainder of 5the visualized upper abdominal visceral structures are grossly unremarkable. Procedure Note Alex Birch MD - 08/21/2020 COMPARISON: None TECHNIQUE: CT chest with IV contrast. Multiplanar reformatted imagesgenerated. Automated exposure control utilized. FINDINGS: No worrisome pulmonary nodules identified. There appears be a small focusof scarring adjacent to the left cardiac border and left upper lobe(series 4 image 171). No focal infiltrate or pleural effusion. No frankbronchiectasis. No endotracheal or mainstem endobronchial nodulesapparent. No pathologically enlarged mediastinal or hilar lymph nodes or significantpericardial effusion are demonstrated. Main right and left pulmonaryarteries are grossly patent. No supraclavicular mass or axillary lymphadenopathy apparent. There ismild degenerative spurring in the cervicothoracic spine without traumaticor destructive skeletal lesions noted. Adrenal glands are not enlarged. There is a small benign-appearing spleniccalcification. There is a small cyst in the right hepatic lobe. Remainderof 5the visualized upper abdominal visceral structures are grosslyunremarkable. IMPRESSION: No discrete pulmonary nodules or other significant pleural-parenchymalpathology demonstrated. TOTAL CTDIvol: mGy POS - [id number] Samara GUERRERO IMG CT CHEST Final Resul t * XR CERVICAL SPINE 4-5 VIEWS (08/21/2020 9:31 AM EDT) Anatomical Region Laterality Modality C-spine Computed Radiogr aphy 08/21/2020 11:4 2 AM EDT Impressions 08/21/2020 11:43 AM EDT Mild lower cervical spondylosis without other significant bony abnormality apparent. MRI could be considered for further evaluation if there is clinical suspicion of disc protrusion. POS - [id number] Narrative 08/21/2020 11:43 AM EDT COMPARISON: None FINDINGS: Frontal, lateral, oblique, and AP open-mouth views disclose no fracture, subluxation, or other acute bony abnormality. Intervertebral disc spaces are preserved in overall height with ventral osteophyte formation developing at the C4-5 and C5-6 levels. Neural foramina are overall patent. Prevertebral soft tissues are within normal limits. Slight straightening of cervical lordosis. Procedure Note Alex Birch MD - 08/21/2020 COMPARISON: None FINDINGS: Frontal, lateral, oblique, and AP open-mouth views disclose no fracture,subluxation, or other acute bony abnormality. Intervertebral disc spacesare preserved in overall height with ventral osteophyte formationdeveloping at the C4-5 and C5-6 levels. Neural foramina are overallpatent. Prevertebral soft tissues are within normal limits. Slightstraightening of cervical lordosis. IMPRESSION: Mild lower cervical spondylosis without other significant bony abnormalityapparent. MRI could be considered for further evaluation if there isclinical suspicion of disc protrusion. POS - [id number] Samara GUERRERO IMG XR SPINE Final Resul t documented in this encounter Visit Diagnoses Diagnosis Solitary pulmonary nodule- Primary Cervical radiculopathy Brachial neuritis or radiculitis nos Cervical radiculopathy Brachial neuritis or radiculitis nos Solitary pulmonary nodule documented in this encounter Additional Health Concerns Infection Onset Date Last Indicated Resolved Time CoV-Risk 01/19/2022 01/19/2022 01/30/2022 1:22 AM EDT documented as of this encounter Care Teams Manager Validation Relationship Specialty Start Date End Date Cresencio Box DO [email or web address] PCP - General Internal Medicine 07/16/20 documented as of this encounter Additional Source Comments The information contained in this document represents components of the legal health record. It is not the complete legal health record.[facility]
--- OUTSIDE RECORDS SUMMARY | 2025-02-26 17:45 | XMS_ITS | Encounter Summary ---
Author Organization [facility] Address [address] [place] [id number] Phone Care Team Providers Care [employer] Distributor Supervisor Name Role Phone Cresencio Box DO Primary Care Provider [phone] Encounter Details Date Type Department Care Team (Late st Contact Info) Description 10/01/2024 Procedure Pass [facility], [address] [address] Social History Tobacco Use Types Packs/Day Years [...] Diagnoses Not on filedocumented in this encounter Care Teams [employer] Dist[employer] Supervisor Relationship Specialty Start Date End Date Cresencio Box DO PCP - General Internal Medicine 07/16/20 documented as of this encounter Additional Source Comments The information contained in this document represents components of the legal health record. It is not the complete legal health record.[facility]
== END 2025-02-26 14:52 | disposition home or self-care (01) ==
LOC: HO.LAB 14:51
PROVIDERS: PCP Internal Medicine; Visit Provider Physician Assistant
DX: J40 Bronchitis, not specified as acute or chronic (principal)
CPT/HCPCS: 36415; 85025